=== PATIENT | female | born 1975 | race Caucasian/White ===

== ENCOUNTER 2020-07-02 13:53 | Outpatient (REF) | payer MEDICAID, SELFPAY | END 2020-07-02 13:54 | disposition home or self-care (01) | LOC: HO.MRI 13:53 | PROVIDERS: Visit Provider Internal Medicine | DX: M25.511 Pain in right shoulder (principal) | CPT/HCPCS: 73221 ==

== ENCOUNTER 2021-10-11 08:04 | Outpatient (REF) | payer MEDICAID, SELFPAY | END 2021-10-11 08:05 | disposition home or self-care (01) | LOC: HO.HOSX 08:04 | PROVIDERS: Visit Provider Physician Assistant | DX: Z13.89 Encounter for screening for other disorder (principal) ==

== ENCOUNTER 2023-02-02 15:25 | Outpatient (REF) | payer MEDICAID, SELFPAY ==
[2023-02-02 17:55] LABS: MANUAL DIFF FLAG NO
[2023-02-02 18:01] LABS: Basophils Absolute Auto 0.1 X10*3/uL (0.0-0.2); Basophils Percent Auto 0.7 % (0-2); Eosinophils Absolute Auto 0.2 X10*3/uL (0.0-0.4); Hematocrit 42.9 % (37.0-47.0); Hemoglobin 14.4 g/dl (12.0-16.0); Imm Gran Abs Auto 0.03 X10*3/uL (0.00-0.03); Imm Gran Pct Auto 0.3 % (0.0-0.4); Lymphocytes Percent Auto 20.1 % (20-40); Mean Corpuscular HGB Conc 33.6 g/dl (31.0-35.0); Mean Corpuscular Hemoglobin 31.2 pg (27.0-33.0); Mean Corpuscular Volume 93.1 fL (80.0-98.0); Mean Platelet Volume 10.3 fL (9.4-12.3); Monocytes Absolute Auto 0.6 X10*3/uL (0.1-1.2); Monocytes Percent Auto 6.1 % (2-11); Neutrophils Absolute Auto 7.2 x10*3/uL (2.0-8.3); Neutrophils Percent Auto 70.8 % (45-73); Platelet Count 238 X10*3/uL (160-400); Red Blood Count 4.61 X10*6/uL (4.20-5.50); Red Cell Distribution Width 12.1 % (11.0-16.0); White Blood Count 10.2 X10*3/uL (4.8-10.8)
[2023-02-02 18:30] LABS: Alanine Aminotransferase 11 U/L (0-31); Albumin Level 4.1 g/dL (3.5-5.0); Alkaline Phosphatase 91 U/L (39-117); Anion Gap 12 (12-20); Aspartate Amino Transferase 12 U/L (5-31); Bilirubin Total 0.7 mg/dL (0.0-1.0); Blood Urea Nitrogen 12 mg/dL (9-16); Carbon Dioxide 25 mmol/L (22-29); Chloride 105 mmol/L (96-108); Cholesterol 207 mg/dL (<200); Estimated Glomerular Filt Rate > 60; Glucose Random 80 mg/dL (60-115); HDL Cholesterol 48 mg/dL (>40); LDL Cholesterol Calculated 119 mg/dL (<100); Potassium 3.9 mmol/L (3.3-5.1); Sodium 138 mmol/L (135-145); Triglycerides 200 mg/dL (<150)
[2023-02-02 18:46] LABS: TSH reflex Free T4 11.13 uIU/mL (0.32-4.0)
[2023-02-02 19:29] LABS: Free T4 (Free Thyroxine) 1.07 ng/dL (0.71-1.85)
[2023-02-03 08:13] LABS: Estimated Average Glucose 88 mg/dL; Hemoglobin A1c % 4.7 % (<6.0)
[2023-02-03 08:55] LABS: ~HepC Num1 0.09 S/CO (0.00-0.79); ~Hepatitis C Antibody Nonreactive (Nonreactive)
[2023-02-07 19:23] LABS: HIV RNA PCR Qn Copies Not Detected Copies/mL; HIV RNA PCR Qn Log Copies Not Detected Log cps/mL
== END 2023-02-02 15:26 | disposition home or self-care (01) ==
LOC: HO.CHCLDS 15:25
PROVIDERS: Visit Provider Internal Medicine
DX: Z11.4 Encounter for screening for human immunodeficiency virus [HIV] (principal); Z85.850 Personal history of malignant neoplasm of thyroid
CPT/HCPCS: 36415; 80053; 80061; 83036; 84439; 84443; 85025; 86803; 87536; 87900

== ENCOUNTER 2023-03-27 13:39 | Outpatient (REF) | payer MEDICAID, SELFPAY ==
[2023-03-27 15:54] LABS: TSH reflex Free T4 1.64 uIU/mL (0.32-4.0)
== END 2023-03-27 13:40 | disposition home or self-care (01) ==
LOC: HO.CHCLDS 13:39
PROVIDERS: Visit Provider Internal Medicine
DX: E03.9 Hypothyroidism, unspecified (principal)
CPT/HCPCS: 36415; 84443

== ENCOUNTER 2023-03-29 14:14 | Outpatient (REF) | payer MEDICAID, SELFPAY ==
[2023-03-29 17:24] LABS: Alanine Aminotransferase 12 U/L (0-31); Albumin Level 3.8 g/dL (3.5-5.0); Alkaline Phosphatase 93 U/L (39-117); Anion Gap 14 (12-20); Aspartate Amino Transferase 10 U/L (5-31); Bilirubin Total 0.5 mg/dL (0.0-1.0); Blood Urea Nitrogen 14 mg/dL (9-16); C Reactive Protein 0.23 mg/dL (< or = 0.50); Calcium 8.9 mg/dL (8.4-10.2); Carbon Dioxide 29 mmol/L (22-29); Chloride 102 mmol/L (96-108); Estimated Glomerular Filt Rate > 60; Glucose Random 105 mg/dL (60-115); Potassium 4.6 mmol/L (3.3-5.1); Sodium 140 mmol/L (135-145); Total Protein 6.7 g/dL (6.5-8.0)
[2023-04-04 10:23] LABS: Transglutaminase Ab IgG <1.0 U/mL; Transglutaminase IgA <1.0 U/mL
== END 2023-03-29 14:15 | disposition home or self-care (01) ==
LOC: HO.LAB 14:14
PROVIDERS: PCP Internal Medicine; Visit Provider Nurse Practitioner
DX: R19.7 Diarrhea, unspecified (principal); K21.9 Gastro-esophageal reflux disease without esophagitis; R10.11 Right upper quadrant pain
CPT/HCPCS: 36415; 80053; 86140; 86364; 99212

== ENCOUNTER 2023-03-29 14:14 | Outpatient (AMB) | payer MEDICAID, SELFPAY ==
--- NOTE | 2023-03-29 14:17 | MHC.OFFVIS ---
Intake Vital Signs 03/29/23 14:48 Height 5 ft 2 in Weight 145 lb 8.081 oz BMI 26.6 BP 108/66 Blood Pressure Location Rt brachial Position Sitting Pulse 72 Intake Visit Reasons: Liver cyst / Nonalcoholic steatohepatitis Intake Note: Patient presents to in office visit today as a new patient for liver cyst. CC: Patient reports she has IBS and states she gets a lot of diarrhea, abdominal pain all the time, vomiting with IBS flare ups. She also c/o acid reflux, abdominal bloating, and gas. She states she was seen last night at [facility] with chest pain and breathing out of control . Allergies diazepam [From Valium] Allergy (Severe, Verified 03/29/23 14:55) Hives HPI Liver cyst / Nonalcoholic steatohepatitis HPI Details 47-year-old female here for initial evaluation of elevated LFTs. She is referred by Sterling Hernandez of [facility]. PMX Asthma Allergic rhinitis History thyroid cancer Hypothyroid Mood disorder GERD * SURGICAL HISTORY Hysterectomy Thyroidectomy ACL repair left knee * ALLERGIES Diazepam - hives * naaya LABS: Laboratory Tests 02/02/23 02/02/23 03/27/23 15:30 15:30 13:44 WBC 10.2 Hgb 14.4 Hct 42.9 Plt Count 238 Estimated GFR > 60 Total Bilirubin 0.7 AST 12 ALT 11 Alkaline Phosphata se 91 TSH 1.64 Free T4 1.07 Hepatitis C Ab (EI A) Nonreactive TODAY'S VISIT She is today with her mother who is supportive. She says she is here for an upper and lower endoscopy to see what is going on for my IBS. She has had IBS for 12 years. She really can not remember what the findings were from those procedures. She has constant diarrhea, that is worse with mac and cheese, spicy foods, [employer]. She says this was dx'ed via EGD/colonoscopy 12 years ago. She does not have diarrhea every day, at times she will not move her bowels for a couple of days but never has a solid stool. She will have frequent fecal incontinence. She has a lot of bloating and gas, this is worse after eating omeprazole. (question if there is any element of diarrhea caused by omeprazole) Her IBS worsens with stress, it was worse after my marriage, she is now . She feels like her stomach is stretching and extremely distended however she also has gained quite a bit of weight recently. She will have a burning pain that starts in the RUQ and then follows the colon path and then she will have severe diarrhea with vomiting. . She was seen recently at [facility] (3 mos ago) and was told she was having a GB attack and she says she met the surgeon and after 18 hours she was told she was going home. She was also told she had fatty liver, but her LFT s are normal. Apparently they also told her she ?real bad fatty liver? however when she shows me the scan on her patient portal it says that the liver was in the radiology notes but then says that there is stable fatty liver under the final impressions. This report clearly contradicts itself. It sounds like there was a lot of [facility] the night she was there and couple of different charts may have been mixed up. She is quite confused re: her thyroid polyps and esophageal polyps. She has been gaining wt recently but also has thyroid disease with nodules removed. She says her thyroid levels went way up a few weeks ago. Her endocrine is at [address] [facility]. She has tried bentyl w/o any effect. She has never tried [id number] Imodium or anything like Carafate etc.. I am try to get records from both [facility] in [facility] from her ER visit, will also get a basic diarrhea workup including food allergy testing and CRP, and ultrasound of her abdomen to try to clarify the very confusing CT scan reports. I would rather do this than expose her to another large dose of radiation.. There is no known family history of stomach or colon cancer or similar GI problems. Her mother was diagnosed with an allergy to eggs the past but says she continues to eat them and she does not feel that they affect her poorly. Her mother has bouts of diverticulitis. For now I am going to wait until I get some tests and records before I prescribed any new treatments. The patient sounds quite manic during the interview and tends to jump from subject to subject however she does not seem to be confabulating as far as I can tell. She may have untreated attention deficit hyperactivity disorder. Return office visit in 4 weeks. [facility] Medical History (Updated 03/29/23 @ 15:21 by VI Mosqueda) Thyroid cancer Surgical History (Updated 03/29/23 @ 15:47 by VI Mosqueda) S/P ACL repair H/O thyroidectomy History of hysterectomy Family History (Updated 03/29/23 @ 15:01 by Theodore Munguia CCM) Mother Breast cancer Family/Other Bone cancer Maternal Grandmother Breast cancer Maternal Aunt Breast cancer Social History (Updated 03/29/23 @ 15:02 by Theodore Munguia [facility]) Alcohol intake: former Patient Tobacco Use Status: Former Tobacco user Review of Systems Const Denies fatigue, Denies fever(s), Denies night sweats, Denies poor appetite, Reports weight gain and Denies weight loss ENT Reports Normal hearing present, Denies dental pain, Denies dysphagia, Denies hearing loss, Denies mouth pain, Denies odynophagia, Denies throat swelling, Denies tongue swelling and Reports other (Dentition adequate) Card Reports no additional complaints Resp Reports no additional complaints GI Reports abdominal pain, Denies melena, Reports bloating, Denies hematochezia, Denies constipation, Denies GI cramping, Denies dysphagia, Denies excessive flatus, Denies early satiety, Reports heartburn, Reports diarrhea, Reports nausea, Denies odynophagia, Reports vomiting and Denies hematemesis Skin/Breast Denies pruritus, Denies lesions, Denies rash and Denies jaundice Neuro Reports Normal hearing present and Denies Abnormal speech present Endo Denies fatigue Aller/Immun Denies throat swelling and Denies tongue swelling Physical Exam Vital Signs: Last Vital Signs Pulse 72 03/29/23 14:48 BP 108/66 03/29/23 14:48 BMI result Body Mass Index 26.6 Const General: cooperative, no acute distress, well developed and well groomed Nutritional Appearance: well nourished and obese centrally obese Orientation/consciousness: oriented to person, oriented to place and oriented to time Limitations: No language barrier HEENT Head: Yes normocephalic and Yes atraumatic Eyes General: appearance normal, both eyes and all related structures Pupils: Equal, round and reactive pupils present Neck Neck: Yes normal visual inspection and Yes no lymphadenopathy Thyroid: Thyroid normal Resp Effort & Inspection: normal respiratory effort and able to speak in complete sentences Auscultation: clear to auscultation bilaterally Cardio Rate: regular rate Rhythm: regular rhythm Heart sounds: Normal, physiologic split S2 sound present Peripheral pulses: radial pulses present and posterior tibial pulses present GI Inspection: Yes distended, Yes Abdominal panniculus present, Yes obesity and Yes striae Palpation (GI): Soft to palpation, nontender, no guarding, not rigid, No hepatosplenomegaly present and Hernia present umbilical (Mild) Percussion: Yes normal to percussion Auscultation: normal bowel sounds Rectal Exam - Female: deferred Abdomen image: 1. surgical scar Skin General skin exam: no rashes or lesions noted, turgor normal, skin not dry, no jaundice, No spider nevi and no striae Rashes: no rashes Nails: normal Neuro General: oriented to person, oriented to place and oriented to time Cranial nerves: Yes Equal, round and reactive pupils present and Yes Normal hearing present Speech: No Abnormal speech present Extrem General: Yes normal to inspection, No clubbing, No cyanosis and No edema Psych Appearance: grossly normal and well kempt Mental Status: mental status grossly normal Speech and movement: Pressured speech present Affect: Animated affect present Attitude: cooperative Thought process: Circumstantial thought process present, not confabulating and Racing thoughts present Thought content: Normal thought content present Insight: Limited insight present (Psych) Judgement: Limited judgement present (Psych) Assessment & Plan Assessment & Plan (1) Diarrhea: Code(s): R19.7 - Diarrhea, unspecified Plan: She is today with her mother who is supportive. She says she is here for an upper and lower endoscopy to see what is going on for my IBS. She has had IBS for 12 years. She really can not remember what the findings were from those procedures. She has constant diarrhea, that is worse with mac and cheese, spicy foods, [employer]. She says this was dx'ed via EGD/colonoscopy 12 years ago. She does not have diarrhea every day, at times she will not move her bowels for a couple of days but never has a solid stool. She will have frequent fecal incontinence. She has a lot of bloating and gas, this is worse after eating omeprazole. (question if there is any element of diarrhea caused by omeprazole) Her IBS worsens with stress, it was worse after my marriage, she is now . She feels like her stomach is stretching and extremely distended however she also has gained quite a bit of weight recently. She will have a burning pain that starts in the RUQ and then follows the colon path and then she will have severe diarrhea with vomiting. . She was seen recently at [facility] (3 mos ago) and was told she was having a GB attack and she says she met the surgeon and after 18 hours she was told she was going home. She was also told she had fatty liver, but her LFT s are normal. Apparently they also told her she ?real bad fatty liver? however when she shows me the scan on her patient portal it says that the liver was in the radiology notes but then says that there is stable fatty liver under the final impressions. This report clearly contradicts itself. It sounds like there was a lot of [facility] the night she was there and couple of different charts may have been mixed up. She is quite confused re: her thyroid polyps and esophageal polyps. She has been gaining wt recently but also has thyroid disease with nodules removed. She says her thyroid levels went way up a few weeks ago. Her endocrine is at [facility]. She has tried bentyl w/o any effect. She has never tried [id number] Imodium or anything like Carafate etc.. I am try to get records from both [facility] in [facility] from her ER visit, will also get a basic diarrhea workup including food allergy testing and CRP, and ultrasound of her abdomen to try to clarify the very confusing CT scan reports. I would rather do this than expose her to another large dose of radiation.. There is no known family history of stomach or colon cancer or similar GI problems. Her mother was diagnosed with an allergy to eggs the past but says she continues to eat them and she does not feel that they affect her poorly. Her mother has bouts of diverticulitis. For now I am going to wait until I get some tests and records before I prescribed any new treatments. The patient sounds quite manic during the interview and tends to jump from subject to subject however she does not seem to be confabulating as far as I can tell. She may have untreated attention deficit hyperactivity disorder. Return office visit in 4 weeks. (2) RUQ abdominal pain: Code(s): R10.11 - Right upper quadrant pain (3) GERD (gastroesophageal reflux disease): Code(s): K21.9 - Gastro-esophageal reflux disease without esophagitis Orders: Orders Comprehensive Met. Panel Today K21.9 - Gastro-esophageal reflux disease without esophagitis, R10.11 - Right upper quadrant pain, R19.7 - Diarrhea, unspecified Transglutaminase Ab IgG Today K21.9 - Gastro-esophageal reflux disease without esophagitis, R10.11 - Right upper quadrant pain, R19.7 - Diarrhea, unspecified C Reactive Protein Today K21.9 - Gastro-esophageal reflux disease without esophagitis, R10.11 - Right upper quadrant pain, R19.7 - Diarrhea, unspecified EGD/[facility] Combo - GI Use Only Today K21.9 - Gastro-esophageal reflux disease without esophagitis, R10.11 - Right upper quadrant pain, R19.7 - Diarrhea, unspecified US abdomen complete Today R10.11 - Right upper quadrant pain Rast Allergen Today K21.9 - Gastro-esophageal reflux disease without esophagitis, R10.11 - Right upper quadrant pain, R19.7 - Diarrhea, unspecified Transglutaminase IgA Today K21.9 - Gastro-esophageal reflux disease without esophagitis, R10.11 - Right upper quadrant pain, R19.7 - Diarrhea, unspecified Coding Level of Care Code New Pt Level 3 (48860) Diagnoses Diarrhea R19.7 RUQ abdominal pain R10.11 GERD (gastroesophageal reflux disease) K21.9
[2023-03-29 14:48] VITALS: BP 108/66; PULSE 72; BMI 26.6
== END 2023-03-29 15:37 | disposition home or self-care (01) ==
PROVIDERS: PCP Internal Medicine; Visit Provider Nurse Practitioner
DX: R19.7 Diarrhea, unspecified (principal); R10.11 Right upper quadrant pain; K21.9 Gastro-esophageal reflux disease without esophagitis
CPT/HCPCS: 99203

== ENCOUNTER 2023-08-02 14:05 | Outpatient (REF) | payer MEDICAID, SELFPAY ==
--- NOTE | ~2023-08-02 | XR_ITS ---
EXAMINATION: XR SHOULDER, RIGHT CLINICAL INFORMATION: Pain of right shoulder COMPARISON: MRI from 07/02/2020 TECHNIQUE: AP external rotation, Grashey, scapular Y, and axillary views of the right shoulder. FINDINGS: The humeral head is well positioned over the intact glenoid. Glenohumeral joint space is normal: no arthritic deformity, fracture or subluxation. Acromioclavicular joint is normal. The subacromial space is normal. There are no osteophytes projecting from the undersurface of the acromioclavicular joint. No hook-shaped acromion, os acromiale or subacromial enthesophyte. No osseous findings that would predispose to a subacromial impingement disorder. No calcium deposition within rotator cuff tendons. The right lung is unremarkable. Incidentally noted is mild dextrocurvature and mild spondylosis of the thoracic spine. Old healed fracture of the right posterior ninth rib. XR/XR shoulder RT min 2V IMPRESSION: Normal right shoulder. No specific source of pain is identified. Note that the patient had a small interstitial tear of the distal supraspinatus tendon on the MRI from 07/02/2020.
== END 2023-08-02 14:06 | disposition home or self-care (01) ==
LOC: HO.HMGCX 14:05
PROVIDERS: PCP Internal Medicine; Visit Provider Internal Medicine
DX: M25.511 Pain in right shoulder (principal)
CPT/HCPCS: 73030

== ENCOUNTER 2024-01-04 07:37 | Day surgery (SDC) | payer MEDICAID, SELFPAY ==
[2024-01-02 14:05] VITALS: BMI 26.7
--- NOTE | 2024-01-03 11:47 | HO.ANESPROP2 ---
Documented by User: Milly Elizondo NP 01/03/24 11:47 HPI - Anesthesia Eval Consult details Narrative: 48yo F for Upper Endoscopy and Colonoscopy PMFSH Active Problems Active Problems: All Active Problems RUQ abdominal pain (Acute) Diarrhea (Acute) Liver cyst (Acute) GERD (gastroesophageal reflux disease) (Acute) Mood disorder (Acute) Hypothyroid (Acute) History of thyroid cancer (Acute) Allergic rhinitis (Acute) Asthma (Acute) Hepatic steatosis (Acute) Past Medical History Medical History Atypical chest pain IBS (irritable bowel syndrome) Asthma Mood disorder Hypothyroid Liver cyst GERD (gastroesophageal reflux disease) Thyroid cancer Family History Family History Mother Breast cancer Family/Other Bone cancer Maternal Grandmother Breast cancer Maternal Aunt Breast cancer Surgical History Surgical History Hx of colonoscopy Hx of esophagogastroduodenoscopy S/P ACL repair H/O thyroidectomy History of hysterectomy Social History Social History Alcohol intake: former Patient Tobacco Use Status: Former Tobacco user Are you DNR?: No Advance Directives: No Advance Directives Information Provided: Yes Meds Allergies Allergy/AdvReac Type Severity Reaction Status Date / Time diazepam [From Valium] Allergy Severe Hives Verified 03/29/23 14:55 Home Medications ?Medication ?Instructions ?Recorded ?Confirmed ?Last Taken ?Type albuterol sulfate 90 mcg/actuation 2 puff inhalation Q4H PRN 03/29/23 01/02/24 Unknown History aerosol inhaler (Ventolin HFA) Shortness Of Breath clonazepam 2 mg tablet 2 mg PO DAILY PRN anxiety 03/29/23 01/02/24 Unknown History fluocinolone 0.01 % scalp oil and 1 ea topical 2XW 03/29/23 01/02/24 Unknown History shower cap fluoxetine 10 mg capsule 10 mg PO QAM 03/29/23 01/02/24 Unknown History levothyroxine 125 mcg capsule 125 mcg PO DAILY 03/29/23 01/02/24 Unknown History (Tirosint) omeprazole 20 mg capsule,delayed 20 mg PO DAILY 03/29/23 01/02/24 Unknown History release trazodone 150 mg tablet 150 mg PO BEDTIME 03/29/23 01/02/24 Unknown History Exam Height,Weight and Vital Signs: Height 5 ft 2 in Weight 66.224 kg Assessment and Plan Assessment Anesthesia Assessment: Chart Reviewed Documented by User: Gladys Crowe MD 01/04/24 09:31 [facility] Past Medical History Medical History Atypical chest pain IBS (irritable bowel syndrome) Asthma Mood disorder Hypothyroid Liver cyst GERD (gastroesophageal reflux disease) Thyroid cancer Family History Family History Mother Breast cancer Family/Other Bone cancer Maternal Grandmother Breast cancer Maternal Aunt Breast cancer Family history of problems with anesthesia: No Surgical History Surgical History Hx of colonoscopy Hx of esophagogastroduodenoscopy S/P ACL repair H/O thyroidectomy History of hysterectomy History of Problems with Anesthesia: No Social History Social History Alcohol intake: former Patient Tobacco Use Status: Former Tobacco user Are you DNR?: No Advance Directives: No Advance Directives Information Provided: Yes Meds Allergies Allergy/AdvReac Type Severity Reaction Status Date / Time diazepam [From Valium] Allergy Severe Hives Verified 03/29/23 14:55 Home Medications ?Medication ?Instructions ?Recorded ?Confirmed ?Last Taken ?Type albuterol sulfate 90 mcg/actuation 2 puff inhalation Q4H PRN 03/29/23 01/02/24 Unknown History aerosol inhaler (Ventolin HFA) Shortness Of Breath clonazepam 2 mg tablet 2 mg PO DAILY PRN anxiety 03/29/23 01/02/24 Unknown History fluocinolone 0.01 % scalp oil and 1 ea topical 2XW 03/29/23 01/02/24 Unknown History shower cap fluoxetine 10 mg capsule 10 mg PO QAM 03/29/23 01/02/24 Unknown History levothyroxine 125 mcg capsule 125 mcg PO DAILY 03/29/23 01/02/24 Unknown History (Tirosint) omeprazole 20 mg capsule,delayed 20 mg PO DAILY 03/29/23 01/02/24 Unknown History release trazodone 150 mg tablet 150 mg PO BEDTIME 03/29/23 01/02/24 Unknown History Exam Airway Mallampati Class: II TM Dist: >3cm Neck ROM: Full Heart: rrr Lungs: cta Assessment and Plan Assessment Anesthesia Assessment: Anesthesia Plan Discussed Final Anesthetic Review Family History of Problems with Anesthesia: No History of Problems with Anesthesia: No NPO: Yes ASA Class: III Final Preanesthetic Review: No Changes in Pt Med Stat, Meds/Allgs Chart Reviewed, Consent Obtained/Reviewed and Anes Risks/Benef Reviewed Patient Risk: Intermediate Procedure Risk: Low Anesthetic Plan Anesthetic Plan: MAC: Disposition: Standard PACU
[2024-01-04 07:49] VITALS: BP 134/88; PULSE 69; RESP 20; TEMP 36.9; O2SAT 98; BMI 27.3
[2024-01-04] MEDS: Lactated Ringers 1,000 ML 100 ML IVCONT (08:10)
--- NOTE | 2024-01-04 08:25 | MHC.SHP ---
Pre-Procedural Eval Section A - 24 Hr Update-Section A only Date of Service: 01/04/24 Section B - Complete if H&P > 30 days Chief Complaint: Right upper quadrant pain,gerd,diarrhea Relevant Family History (Specify if Yes): No Relevant Social History: None Present Medications: see Short Stay Collaborative assessment Medical History: Significant History (Atypical chest pain IBS (irritable bowel syndrome) Asthma Mood disorder Hypothyroid Liver cyst GERD (gastroesophageal reflux disease) Thyroid cancer) History of Previous Operations: Relevant previous surgery/procedure and date(s) ( S/P ACL repair H/O thyroidectomy History of hysterectomy) Allergies: Allergies Allergy/AdvReac Type Severity Reaction Status Date / Time diazepam [From Valium] Allergy Severe Hives Verified 03/29/23 14:55 Review of Systems Sugical H&P ROS: Negative: Constitution, Cardiovascular, Respiratory, Neurological, Psychiatric, Hem-Onc, Allergic/Immunologic, Gastrointestinal, Genitourinary, Musculoskeletal, Integumentary, Endocrine and Eyes/Ears/Nose/Throat Exam Surgical H&P Exam: Normal: HEENT, Normal: Heart, Normal: Lungs, Normal: Extremities, Normal: Abdomen, Normal: Skin and Normal: Neurological Plan Diagnosis/Plan: Unchanged I have reviewed the history and physical and performed a pertinent physical examination on my patient. No changes have occurred unless specified. Time Spent With Patient Time: Total time managing care of this patient today ____ minutes.
--- NOTE | 2024-01-04 09:12 | HO.OPN-COLON ---
Colonoscopy Operative Note Operative Note Date of Service: 01/04/24 Narrative: Operative Information Procedure Description: EGD, Colonoscopy Indication: abdominal pain and abn bowel habits Anesthesia: MAC FLEXIBLE TRANSORAL UPPER GASTROINTESTINAL ENDOSCOPY AND COLONOSCOPY PROCEDURE NOTE UPPER ENDOSCOPY Consent: Indications for the procedure and potential complications of bleeding, perforation, reaction to medications and missed diagnosis were discussed with the patient and informed consent was obtained. Instrument: Olympus GIF H 190 J mid size upper endoscope Monitoring: Vital signs and clinical assessment, continuous EKG monitoring, Pulse oximetry, Carbon Dioxide monitoring and blood pressure monitoring were done throughout the procedure. Procedure: The patient was placed in the left lateral decubitis position and pre-procedure medications were administered and a bite block was placed. The endoscope was inserted into the mouth and advanced under direct vision to the third part of duodenum. A careful inspection was made as the upper endoscope was withdrawn including a retroflexed examination of the proximal stomach; Findings and interventions are described below. Findings: Larynx:normal Esophagus: GE junction at 40 cm, diaphragm hiatus at 40 cm, mild erythema and irregular Z line, biopsies taken Stomach: Patchy erythema. Biopsies were obtained. Grade 2 flap valve on retroflexed examination of the cardia. Possible gastroparesis, there appeared to be reduced gastric motility. Duodenum: Normal bulb and descending duodenum, bx taken Intervention: Biopsies as noted above, COLONOSCOPY Instrument: Olympus variable stiffness pediatric scope 190L Colonoscopy Monitoring: Vital signs and clinical assessment, continuous EKG monitoring, Pulse oximetry, Carbon Dioxide monitoring and blood pressure monitoring were done throughout the procedure. Colon withdrawal time was 9 minutes. Procedure: The patient was placed in the left lateral decubitis position and pre-procedure medications were administered. After a digital rectal examination of the ano-rectum, the video colonoscope was inserted into the rectum and advanced through the colon to the cecum/TI. The colonoscope was slowly withdrawn in a retrograde panoramic fashion and the colon mucosa was carefully examined including a retroflexed view of the rectum. Findings and interventions are described below. Procedure Difficulty:moderate Findings: Terminal Ileum-normal, random bx taken Random colon bx taken Cecum:normal Ascending Colon: normal Transverse Colon -normal Descending Colon:normal Sigmoid Colon: moderate diverticulosis with luminal narrowing and mucosal hypertrophy Rectum: Retroflexion with small internal hemorrhoids, grade I, 4-6 mm sessile polyp removed with cold forceps Anorectum - normal Colon preparation: Henderson Bowel Preparation Scale Right colon; 2 Transverse colon: 2 Left colon; 2 (0 = Unprepared colon segment with mucosa not seen due to solid stool that cannot be cleared. 1 = Portion of mucosa of the colon segment seen, but other areas of the colon segment not well seen due to staining, residual stool and/or opaque liquid. 2 = Minor amount of residual staining, small fragments of stool and/or opaque liquid, but mucosa of colon segment seen well. 3 = Entire mucosa of colon segment seen well with no residual staining, small fragments of stool or opaque liquid) Impression and Post Procedure Diagnosis: Endoscopy Findings: gastritis esophagitis possible gastroparesis Colonoscopy Findings: diverticulosis colon polyp internal hemorrhoids Plan: Await Pathology results Repeat Colonoscopy in 5-7 years if adenomatous polyp, 10 yrs if hyperplastic or earlier if clinically indicated High fiber diet leaflet avoid straining at stool, epsom salts and sitz bath, anusol supps or cream consider gastric emptying study if ongoing sx Above findings were reviewed with the patient and relevant handouts were provided if indicated.
[2024-01-04 09:57] VITALS: BP 132/82; PULSE 89; RESP 18; TEMP 36.1; O2SAT 98
[2024-01-04 10:12] VITALS: BP 122/89; PULSE 78; RESP 18; TEMP 36.6; O2SAT 98
== END 2024-01-04 10:47 | disposition home or self-care (01) ==
PROVIDERS: PCP Internal Medicine; Visit Provider Internal Medicine Gastroenterology
PROC: (CPT 43239; principal; 2024-01-04 09:30)
DX: K29.70 Gastritis, unspecified, without bleeding (principal); K20.90 Esophagitis, unspecified without bleeding; K22.9 Disease of esophagus, unspecified; K76.89 Other specified diseases of liver; K21.9 Gastro-esophageal reflux disease without esophagitis; D12.8 Benign neoplasm of rectum; K57.30 Diverticulosis of large intestine without perforation or abscess without bleeding; K64.0 First degree hemorrhoids; K58.0 Irritable bowel syndrome with diarrhea; J45.909 Unspecified asthma, uncomplicated; Z85.850 Personal history of malignant neoplasm of thyroid
CPT/HCPCS: 43239; 45380; 88305; 88313; 88341; 88342; J1596; J2704

== ENCOUNTER → 2024-01-04 07:37 | Outpatient (BNV) | payer MEDICAID, SELFPAY | PROVIDERS: PCP Internal Medicine; Visit Provider Internal Medicine Gastroenterology | DX: K29.70 Gastritis, unspecified, without bleeding (principal); K20.90 Esophagitis, unspecified without bleeding; K31.84 Gastroparesis; R19.4 Change in bowel habit; K57.30 Diverticulosis of large intestine without perforation or abscess without bleeding; K63.5 Polyp of colon; K64.0 First degree hemorrhoids | CPT/HCPCS: 43239; 45380 ==

== ENCOUNTER 2024-01-18 09:52 | Outpatient (AMB) | payer MEDICAID, SELFPAY ==
--- NOTE | 2024-01-18 09:55 | A.OFFVIS_ITS ---
Vital Signs 01/18/24 10:04 Height 5 ft 2 in Weight 151 lb 3.794 oz BMI 27.7 BP 120/76 Blood Pressure Location Lt brachial Position Sitting Pulse 86 Intake Visit Reasons: S/P Dr. Adriana Saeed Intake Note: Jerri presents in follow up s/p EGD and colonoscopy. CC: Patient reports having abdominal pain, nausea, and diarrhea. She also c/o inflammation from abdomen. 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 Adriana Saeed: Details: Assessment & Plan (1) Diarrhea: Code(s): R19.7 - Diarrhea, unspecified Plan: She is today with her mother who is supportive. She says she is here for an upper and lower endoscopy to see what is going on for my IBS. She has had IBS for 12 years. She really can not remember what the findings were from those procedures. She has constant diarrhea, that is worse with mac and cheese, spicy foods, [employer]. She says this was dx'ed via EGD/colonoscopy 12 years ago. She does not have diarrhea every day, at times she will not move her bowels for a couple of days but never has a solid stool. She will have frequent fecal incontinence. She has a lot of bloating and gas, this is worse after eating omeprazole. (question if there is any element of diarrhea caused by omeprazole) Her IBS worsens with stress, it was worse after my marriage, she is now . She feels like her stomach is stretching and extremely distended however she also has gained quite a bit of weight recently. She will have a burning pain that starts in the RUQ and then follows the colon path and then she will have severe diarrhea with vomiting. . She was seen recently at [facility] (3 mos ago) and was told she was having a GB attack and she says she met the surgeon and after 18 hours she was told she was going home. She was also told she had fatty liver, but her LFT s are normal. Apparently they also told her she ?real bad fatty liver? however when she shows me the scan on her patient portal it says that the liver was in the radiology notes but then says that there is stable fatty liver under the final impressions. This report clearly contradicts itself. It sounds like there was a lot of [place] the night she was there and couple of different charts may have been mixed up. She is quite confused re: her thyroid polyps and esophageal polyps. She has been gaining wt recently but also has thyroid disease with nodules removed. She says her thyroid levels went way up a few weeks ago. Her endocrine is at [address] [facility]. She has tried bentyl w/o any effect. She has never tried [id number] Imodium or anything like Carafate etc.. I am try to get records from both [facility] in [place] from her ER visit, will also get a basic diarrhea workup including food allergy testing and CRP, and ultrasound of her abdomen to try to clarify the very confusing CT scan reports. I would rather do this than expose her to another large dose of radiation.. There is no known family history of stomach or colon cancer or similar GI problems. Her mother was diagnosed with an allergy to eggs the past but says she continues to eat them and she does not feel that they affect her poorly. Her mother has bouts of diverticulitis. For now I am going to wait until I get some tests and records before I prescribed any new treatments. The patient sounds quite manic during the interview and tends to jump from subject to subject however she does not seem to be confabulating as far as I can tell. She may have untreated attention deficit hyperactivity disorder. Return office visit in 4 weeks. (2) RUQ abdominal pain: Code(s): R10.11 - Right upper quadrant pain (3) GERD (gastroesophageal reflux disease): Code(s): K21.9 - Gastro-esophageal reflux disease without esophagitis Orders: Orders Comprehensive Met. Panel Today K21.9 - Gastro-esophageal reflux disease without esophagitis, R10.11 - Right upper quadrant pain, R19.7 - Diarrhea, unspecified Transglutaminase Ab IgG Today K21.9 - Gastro-esophageal reflux disease without esophagitis, R10.11 - Right upper quadrant pain, R19.7 - Diarrhea, unspecified C Reactive Protein Today K21.9 - Gastro-esophageal reflux disease without esophagitis, R10.11 - Right upper quadrant pain, R19.7 - Diarrhea, unspecified EGD/[place] Combo - GI Use Only Today K21.9 - Gastro-esophageal reflux disease without esophagitis, R10.11 - Right upper quadrant pain, R19.7 - Diarrhea, unspecified US abdomen complete Today R10.11 - Right upper quadrant pain Rast Allergen Today K21.9 - Gastro-esophageal reflux disease without esophagitis, R10.11 - Right upper quadrant pain, R19.7 - Diarrhea, unspecified Transglutaminase IgA Today K21.9 - Gastro-esophageal reflux disease without esophagitis, R10.11 - Right upper quadrant pain, R19.7 - Diarrhea, unspecified LABS: Laboratory Tests 03/29/23 16:04 Estimated GFR > 60 Total Bilirubin 0.5 AST 10 ALT 12 Alkaline Phosphatase 93 C-Reactive Protein 0.23 Tiss Transglutamin IgG <1.0 Tiss Transglutamin IgA <1.0 RAST SHOWS NO SIGNIFICANT FOOD ALLERGIES ULTRASOUND OF THE ABDOMEN EGD/COLONOSCOPY Findings: Larynx:normal Esophagus: GE junction at 40 cm, diaphragm hiatus at 40 cm, mild erythema and irregular Z line, biopsies taken Stomach: Patchy erythema. Biopsies were obtained. Grade 2 flap valve on retroflexed examination of the cardia. Possible gastroparesis, there appeared to be reduced gastric motility. Duodenum: Normal bulb and descending duodenum, bx taken Findings: Terminal Ileum-normal, random bx taken Random colon bx taken Cecum:normal Ascending Colon: normal Transverse Colon -normal Descending Colon:normal Sigmoid Colon: moderate diverticulosis with luminal narrowing and mucosal hypertrophy Rectum: Retroflexion with small internal hemorrhoids, grade I, 4-6 mm sessile polyp removed with cold forceps Anorectum - normal Impression and Post Procedure Diagnosis: Endoscopy Findings: gastritis esophagitis possible gastroparesis Colonoscopy Findings: diverticulosis colon polyp internal hemorrhoids Plan: Await Pathology results Repeat Colonoscopy in 5-7 years if adenomatous polyp, 10 yrs if hyperplastic or earlier if clinically indicated High fiber diet leaflet avoid straining at stool, epsom salts and sitz bath, anusol supps or cream consider gastric emptying study if ongoing sx BIOPSY Received: 01/04/24 ADDENDUM REPORT Addendum Addendum #1 CD117 Immunohistochemistry (# cells per high powered field): A. Terminal ileum (43 mast cells per high power field) B. Colon (33 mast cells per high power field) C. Rectum, biopsy (25 mast cells per high power field) GI tract involvement by systemic mastocytosis is characterized by aggregates of atypical appearing mast cells, which are often oval or spindle-shaped - features not seen in the current specimens. In reactive processes, mast cells are not atypical appearing and occur singly (as in this case). In one study (Zkee et al. PMID [id number]), the number of mast cells per high-powered field in IBS patients with diarrhea was elevated compared to asymptomatic patients (30 per high-powered field for IBS; 26 per high- powered field for asymptomatic patients in colon biopsies; statistically significant). Mast cell density in other areas of the GI tract is not well characterized. There are myriad other causes of elevated mast cells in GI mucosa, including allergies, celiac disease, malignancies, infections and drugs, among other etiologies (Belkis, etal. PMID [id number]). Correlation with the patient's clinical presentation and other laboratory studies is necessary. Electronically Signed By: Candace Villa MD 01/10/24 8466 Diagnosis A. Terminal ileum, biopsy: Ileal mucosa within normal limits; negative for active or chronic ileitis. B. Colon, random, biopsy: Colonic mucosa within normal limits; negative for active, chronic or microscopic colitis. C. Rectum, polypectomy: Tubular adenoma; negative for high-grade dysplasia. D. Duodenum, biopsy: Duodenal mucosa within normal limits; preserved villous architecture and no increased intraepithelial lymphocytes seen. E. Stomach, biopsy: Gastric antral and body mucosa within normal limits; negative for Helicobacter pylori, intestinal metaplasia and dysplasia. Patient: Jerri Nichole Age/Sex: 48/F MR#: [id number] Page 1 of 3 Surgical Pathology [id number] F. Gastroesophageal junction, biopsy: Gastric cardia-type mucosa with mild chronic inflammation; no squamous mucosa seen; negative for intestinal metaplasia and dysplasia. G. Esophagus, distal, biopsy: Squamous mucosa within normal limits; negative for inflammation (including intraepithelial eosinophils), fungal organisms, intestinal metaplasia and dysplasia. COMMENT: The immunohistochemical studies for CD117 have been ordered and results will be reported in an addendum. CORRESPONDENCE On 07/03/23 @ 12:33 Brenda Ferreira Wrote To Contreras,August JESUS see below On 07/03/23 @ 12:31 Brenda Ferreira Wrote To [facility] noted. Notified patient, patient upset but understands reason for her safety. patient will call back. OR notified. On 07/03/23 @ 11:53 Milly Elizondo Wrote To Brenda Ferreira 1) Per that ER note, she was having chest pain at PCP office the day prior for surgical clearance. Unlikely that she was cleared by PCP. 2) Usually if a patient is referred to a central service tech by another provider (ER doc, PCP, etc), there is a good reason and possible need for further work up. Although the patient doesn't feel like her issues are cardiac in nature, we should wait for the central service tech to weigh in with expertise and/or test results. Even if everything comes back negative, best to know that before an elective procedure. So please reschedule until after cleared by PCP/cardiology. Thanks. On 07/03/23 @ 10:41 Brenda Ferreira Wrote To Brenda Ferreira (2) spoke to patient confirms procedure on 07/06, has ride and prep - dulcolax/peg. Diet, prep, and helpful tips reviewed. She has good understanding , reporting she has had a colonoscopy before. Discussed ED visit in March, patient reports anxiety is cause / culprit. She denies chest pain, palpitations, sob. States, I have severe anxiety and my mother was making it worst. She have a cardiology appt 07/19, however she states this will be waste of time for everyone, since its my anxiety. Will have Milly Elizondo review. On 06/27/23 @ 16:23 Brenda Ferreira Wrote To Brenda Ferreira [facility] medical records called- patient has not been seen by cardiology. On 06/01/23 @ 08:24 Brenda Ferreira Wrote To Brenda Ferreira called patient- no pharmacy listed- preferred pharmacy added and scripts sent. Informed her that I will call her a few days before procedure to review diet and prep. Brenda Ferreira completed item. On 06/01/23 @ 07:48 Miriam Conde Wrote To Brenda Ferreira could you send peg prep ty On 04/04/23 @ 12:59 Miriam Conde Wrote To Miriam Conde Miriam Conde completed item. On 04/04/23 @ 12:59 Miriam Conde Wrote To Miriam Conde patient is scheduled 07/06/23, has an ov on 04/27/23 with anton can discuss her prep options at that time, as anton will need to rx her prep meds nothing sent. On 03/30/23 @ 08:51 Miriam Conde Wrote To [facility] added to spread sheet. Miriam Conde completed item. On 03/29/23 @ 15:44 Anton Chairez Wrote To [facility]ers As above TODAY'S VISIT She is here today with a female family member who is supportive. She is agreeable to a 5 year follow up. The procedure was well tolerated. The results were explained and the patient is agreeable to the follow-up interval as stated. The bowel pattern has returned to normal. Education was provided to tell any 1st degree relatives about their findings to be sure that they are screened by age 45. Educated that they will be put on a recall list when it is time for their repeat scope but should they move out of state or away from the hospital they will need to remember along with their primary to repeat the procedure in a timely fashion to avoid any adverse complications. She continues to have pain periumbilical and diarrhea. She admits that she eats as fast as I can, but is always hungry. I don't think she has gastroparesis with this presentation, she is just overwhelming her GI system. This is also true of her wt gain. She denies any nausea vomiting or early satiety. We discussed techniques to slow down her eating including counting how often she chews her food. US not obtained. I am going to reorder this exam because she has a perceived lump that is painful to her in the left upper quadrant that we need to explore. She is also questioning whether she has ?retaining water.? I do not think she is retaining water but the ultrasound will help us to decide this. She has been on dicyclomine but it has not helped with her symptoms. I think were going to progress her to imipramine and titrate it to affect her side effect. This is a better medication in that it is a bit stronger, the dosing regimen is easier to comply with, and also help her sleep. Since the pain tends to affect her sleep and she has trouble with this it could be a when when situation. She continues on omeprazole but of course will stop the dicyclomine. Return office visit in 4 weeks [facility] Medical History Atypical chest pain IBS (irritable bowel syndrome) Asthma Mood disorder Hypothyroid Liver cyst GERD (gastroesophageal reflux disease) Thyroid cancer Surgical History Hx of colonoscopy Hx of esophagogastroduodenoscopy S/P ACL repair H/O thyroidectomy History of hysterectomy Family History Mother Breast cancer Family/Other Bone cancer Maternal Grandmother Breast cancer Maternal Aunt Breast cancer Social History Alcohol intake: former Patient Tobacco Use Status: Former Tobacco user Review of Systems Const Denies fatigue, Denies fever(s), Denies night sweats, Denies poor appetite and Denies weight loss ENT Reports Normal hearing present, Denies dysphagia, Denies odynophagia, Denies throat swelling and Denies tongue swelling Card Reports no additional complaints Resp Reports no additional complaints GI Details: Reports abdominal pain, Denies melena, Denies bloating, Denies hematochezia, Denies constipation, Denies GI cramping, Denies dysphagia, Denies excessive flatus, Denies early satiety, Reports heartburn, Reports diarrhea, Denies nausea, Denies odynophagia, Denies vomiting and Denies hematemesis Skin/Breast Denies pruritus, Denies lesions, Denies rash and Denies jaundice Neuro Reports Normal hearing present and Denies Abnormal speech present Endo Denies fatigue Aller/Immun Denies throat swelling and Denies tongue swelling Physical Exam Vital Signs: Last Vital Signs Pulse 86 01/18/24 10:04 BP 120/76 01/18/24 10:04 BMI result Body Mass Index 27.7 Const General: cooperative, no acute distress, well developed and well groomed Nutritional Appearance: well nourished and obese morbidly obese Orientation/consciousness: oriented to person, oriented to place and oriented to time Limitations: behavioral limitations, No language barrier and other limitations HEENT Head: Yes normocephalic and Yes atraumatic Eyes General: appearance normal, both eyes and all related structures Pupils: Equal, round and reactive pupils present Neck Neck: Yes normal visual inspection and Yes no lymphadenopathy Thyroid: Thyroid normal Resp Effort & Inspection: normal respiratory effort and able to speak in complete sentences Auscultation: clear to auscultation bilaterally Cardio Rate: regular rate Rhythm: regular rhythm Heart sounds: Normal, physiologic split S2 sound present Peripheral pulses: radial pulses present and posterior tibial pulses present GI Inspection: No distended, Yes Abdominal panniculus present and Yes obesity Palpation (GI): Soft to palpation, Tenderness to palpation present (GI) in the LUQ, no guarding, not rigid and No hepatosplenomegaly present Percussion: Yes normal to percussion Auscultation: normal bowel sounds Rectal Exam - Female: deferred Skin General skin exam: no rashes or lesions noted, turgor normal, skin not dry, no jaundice, No spider nevi and no striae Rashes: no rashes Nails: normal Neuro General: oriented to person, oriented to place and oriented to time Cranial nerves: Yes Equal, round and reactive pupils present and Yes Normal hearing present Speech: No Abnormal speech present Extrem General: Yes normal to inspection, No clubbing, No cyanosis and No edema Psych Appearance: grossly normal and well kempt Mental Status: mental status grossly normal Speech and movement: Normal speech and movement present Affect: normal affect Attitude: cooperative Thought process: Normal thought process present and not confabulating Thought content: Normal thought content present Insight: Poor insight present (Psych) Judgement: Poor judgement present (Psych) Results Reviewed Results Reviewed: Laboratory Tests 03/29/23 16:04 Estimated GFR > 60 Total Bilirubin 0.5 AST 10 ALT 12 Alkaline Phosphatase 93 C-Reactive Protein 0.23 Tiss Transglutamin IgG <1.0 Tiss Transglutamin IgA <1.0 RAST SHOWS NO SIGNIFICANT FOOD ALLERGIES ULTRASOUND OF THE ABDOMEN EGD/COLONOSCOPY Findings: Larynx:normal Esophagus: GE junction at 40 cm, diaphragm hiatus at 40 cm, mild erythema and irregular Z line, biopsies taken Stomach: Patchy erythema. Biopsies were obtained. Grade 2 flap valve on retroflexed examination of the cardia. Possible gastroparesis, there appeared to be reduced gastric motility. Duodenum: Normal bulb and descending duodenum, bx taken Findings: Terminal Ileum-normal, random bx taken Random colon bx taken Cecum:normal Ascending Colon: normal Transverse Colon -normal Descending Colon:normal Sigmoid Colon: moderate diverticulosis with luminal narrowing and mucosal hypertrophy Rectum: Retroflexion with small internal hemorrhoids, grade I, 4-6 mm sessile polyp removed with cold forceps Anorectum - normal Impression and Post Procedure Diagnosis: Endoscopy Findings: gastritis esophagitis possible gastroparesis Colonoscopy Findings: diverticulosis colon polyp internal hemorrhoids Plan: Await Pathology results Repeat Colonoscopy in 5-7 years if adenomatous polyp, 10 yrs if hyperplastic or earlier if clinically indicated High fiber diet leaflet avoid straining at stool, epsom salts and sitz bath, anusol supps or cream consider gastric emptying study if ongoing sx BIOPSY Received: 01/04/24 ADDENDUM REPORT Addendum Addendum #1 CD117 Immunohistochemistry (# cells per high powered field): A. Terminal ileum (43 mast cells per high power field) B. Colon (33 mast cells per high power field) C. Rectum, biopsy (25 mast cells per high power field) GI tract involvement by systemic mastocytosis is characterized by aggregates of atypical appearing mast cells, which are often oval or spindle-shaped - features not seen in the current specimens. In reactive processes, mast cells are not atypical appearing and occur singly (as in this case). In one study (Zeke et al. PMID [id number]), the number of mast cells per high-powered field in IBS patients with diarrhea was elevated compared to asymptomatic patients (30 per high-powered field for IBS; 26 per high- powered field for asymptomatic patients in colon biopsies; statistically significant). Mast cell density in other areas of the GI tract is not well characterized. There are myriad other causes of elevated mast cells in GI mucosa, including allergies, celiac disease, malignancies, infections and drugs, among other etiologies (Belkis, carlos al. PMID [id number]). Correlation with the patient's clinical presentation and other laboratory studies is necessary. Electronically Signed By: Candace Villa MD 01/10/24 1207 Diagnosis A. Terminal ileum, biopsy: Ileal mucosa within normal limits; negative for active or chronic ileitis. B. Colon, random, biopsy: Colonic mucosa within normal limits; negative for active, chronic or microscopic colitis. C. Rectum, polypectomy: Tubular adenoma; negative for high-grade dysplasia. D. Duodenum, biopsy: Duodenal mucosa within normal limits; preserved villous architecture and no increased intraepithelial lymphocytes seen. E. Stomach, biopsy: Gastric antral and body mucosa within normal limits; negative for Helicobacter pylori, intestinal metaplasia and dysplasia. Patient: Jerri Nichole Age/Sex: 48/F MR#: [id number] Page 1 of 3 Surgical Pathology [id number] F. Gastroesophageal junction, biopsy: Gastric cardia-type mucosa with mild chronic inflammation; no squamous mucosa seen; negative for intestinal metaplasia and dysplasia. G. Esophagus, distal, biopsy: Squamous mucosa within normal limits; negative for inflammation (including intraepithelial eosinophils), fungal organisms, intestinal metaplasia and dysplasia. COMMENT: The immunohistochemical studies for CD117 have been ordered and results will be reported in an addendum. Assessment & Plan Assessment & Plan (1) RUQ abdominal pain: Code(s): R10.11 - Right upper quadrant pain Category: Medical (2) Diarrhea: Code(s): R19.7 - Diarrhea, unspecified Category: Medical (3) GERD (gastroesophageal reflux disease): Code(s): K21.9 - Gastro-esophageal reflux disease without esophagitis Category: Medical (4) Left upper quadrant abdominal swelling, mass and lump: Code(s): R19.02 - Left upper quadrant abdominal swelling, mass and lump Category: Medical (5) Irritable bowel syndrome with diarrhea: Code(s): K58.0 - Irritable bowel syndrome with diarrhea Category: Medical Plan She is agreeable to a 5 year follow up. She continues to have pain periumbilical adn diarrhea. She admits that she eats as fast as I can, but is always hungry. I don't think she has gastroparesis with this presentation, she is just overwhelming her GI system. This is also true of her wt gain. US not obtained. I am going to reorder this exam because she has a perceived lump that is painful to her in the left upper quadrant that we need to explore. She is also questioning whether she has ?retaining water.? I do not think she is retaining water but the ultrasound will help us to decide this. She has been on dicyclomine but it has not helped with her symptoms. I think were going to progress her to imipramine and titrate it to affect her side effect. This is a better medication in that it is a bit stronger, the dosing regimen is easier to comply with, and also help her sleep. Since the pain tends to affect her sleep and she has trouble with this it could be a when when situation. She continues on omeprazole but of course will stop the dicyclomine. Return office visit in 4 weeks Orders: Orders US abdomen complete 01/18/24 R19.02 - Left upper quadrant abdominal swelling, mass and lump Medications: New imipramine HCl 10 mg PO BEDTIME 30 tabs 6RF 30 days K58.0 - Irritable bowel syndrome with diarrhea omeprazole 20 mg PO DAILY 30 caps 6RF K58.0 - Irritable bowel syndrome with diarrhea Coding Level of Care Code Est Pt Level 4 (04223) Diagnoses RUQ abdominal pain R10.11 Diarrhea R19.7 GERD (gastroesophageal reflux disease) K21.9 Left upper quadrant abdominal swelling, mass and lump R19.02 Irritable bowel syndrome with diarrhea K58.0 Time Spent (min) 36
[2024-01-18 10:04] VITALS: BP 120/76; PULSE 86; BMI 27.7
== END 2024-01-18 10:57 | disposition home or self-care (01) ==
PROVIDERS: PCP Internal Medicine; Visit Provider Nurse Practitioner
DX: R10.11 Right upper quadrant pain (principal); R19.7 Diarrhea, unspecified; K21.9 Gastro-esophageal reflux disease without esophagitis; R19.02 Left upper quadrant abdominal swelling, mass and lump; K58.0 Irritable bowel syndrome with diarrhea
CPT/HCPCS: 99214

== ENCOUNTER → 2024-01-18 09:52 | Outpatient (BNVA) | payer MEDICAID, SELFPAY | PROVIDERS: PCP Internal Medicine; Visit Provider Nurse Practitioner | DX: R19.7 Diarrhea, unspecified (principal); R10.11 Right upper quadrant pain; K21.9 Gastro-esophageal reflux disease without esophagitis; R19.02 Left upper quadrant abdominal swelling, mass and lump; K58.0 Irritable bowel syndrome with diarrhea | CPT/HCPCS: 99212 ==

== ENCOUNTER 2024-02-13 09:12 | Outpatient (REF) | payer MEDICAID, SELFPAY ==
--- NOTE | ~2024-02-13 | US_ITS ---
EXAMINATION: US ABDOMEN COMPLETE CLINICAL INFORMATION: Left upper quadrant abdominal swelling, mass and lump. COMPARISON: None available. TECHNIQUE: Real-time imaging of the abdominal viscera. FINDINGS: PANCREAS: Only visualized proximally, but is otherwise unremarkable. ABDOMINAL AORTA: The proximal, mid, and distal segments are normal in caliber. INFERIOR VENA CAVA: Visualized portions are normal. LIVER: The liver is normal in size. The liver contour is normal. There is diffuse increased liver parenchymal echogenicity, consistent with hepatic steatosis. Focal fatty sparing adjacent to the gallbladder fossa. There is no intrahepatic biliary duct dilatation seen. GALLBLADDER: Normal. The gallbladder is physiologically distended without evidence of stones, sludge, polyps, wall thickening or pericholecystic fluid. COMMON BILE DUCT: Normal in caliber measuring 0.2 cm in diameter. RIGHT KIDNEY: Normal. No hydronephrosis. No renal calculi or focal parenchymal lesions. The kidney measures 10.0 cm in maximum dimension. LEFT KIDNEY: No hydronephrosis. No focal parenchymal lesions. The kidney measures 9.4 cm in maximum dimension. Punctate nonobstructing calculus in the lower pole. SPLEEN: Normal. The spleen measures 10.1 cm in maximum dimension. FREE FLUID: None. ADDITIONAL FINDINGS: No abnormality or hernia identified in the patient's area of pain in the left upper quadrant. US/US abdomen complete IMPRESSION: 1. Hepatic steatosis. 2. Punctate nonobstructing left lower pole renal calculus. 3. No abnormality or hernia identified in the patient's area of pain in the left upper quadrant. Electronically signed by: Megan Tyson MD 02/26/2024 04:05 PM EDT
== END 2024-02-13 09:13 | disposition home or self-care (01) ==
LOC: HO.US 09:12
PROVIDERS: Visit Provider Nurse Practitioner
DX: R19.02 Left upper quadrant abdominal swelling, mass and lump (principal)
CPT/HCPCS: 76700

== ENCOUNTER 2025-05-14 11:58 | Outpatient (REF) | payer MEDICAID, SELFPAY ==
--- OUTSIDE RECORDS SUMMARY | 2025-05-14 12:02 | XMS_ITS | Encounter Summary ---
Author Organization [employer] Address [address] [place] [address] [address] [address] Care Team Providers Care Food Service Name Role Phone Sterling Rose MD Primary Care Prov ider Reese Hatch Unavailable Unavailable Pam Neal RN Unavailable Unavailable Sal Cooper Unavailable Reason for Visit * Reason Onset Date Comments Referral 11/21/2022 Encounter Details Date Type Department Care Team ([facility] st Contact Info) Description 11/21/2022 Telephone [facility] CHC MED & PEDS [address] [place], [place] [phone] Sterling Rose MD [address] [place], [place] [phone] Referral Social History Tobacco Use Types Packs/Day Years Used Date Smoking Tobacco: Never Assessed Comments Unknown Sex and Gender Information Value Date Recorded Sex Assigned at Female 03/21/2022 10:31 AM EDT Legal Sex Female 10:31 AM EDT Gender Identity Female 03/21/2022 10:31 AM EDT Sexual Orientation Straight 03/21/2022 10 :31 AM EDT documented as of this encounter Miscellaneous Notes * Telephone Encounter - Lindsey Lockett - 12/05/2022 1:45 PM EDT Good afternoon, in order to process referral for endo I will need chart notes pertaining to DX. Thank you * Telephone Encounter - April Arevalo - 11/21/2022 11:58 AM EDT Tc from pt requesting a new referral for another dermatology. Pt states that it is getting worse and would like a second opinion. Please contact pt at [phone] documented in this encounter Plan of Treatment Not on file documented as of this encounter Visit Diagnoses Not on filedocumented in this encounter Additional Health Concerns Assessment Noted Time PHQ-9 Depression Total Score: 11 023 9:38 AM EDT documented as of this encounter Care Teams Food Service Relationship Specialty Start Date End Date Sterling Rose MD [address] [place] [address] PCP - General Internal Medicine 09/30/19 Reese Hatch FNP [address] [place] [address] Nurse Practitioner Family Medicine 04/10/23 Pam Neal, GABBY [address] [place] [address] Registered Nurse Family Medicine 10/28/24 10/28/24 Sal Cooper 10/28/24 12/31/24 documented as of this encounter
--- OUTSIDE RECORDS SUMMARY | 2025-05-14 12:02 | XMS_ITS | Encounter Summary ---
Author Organization [employer] Address [address] [facility] 7 [place] [address] Care Team Providers Care Mail Carrier Technician Name Role Phone Sterling Rose MD Primary Care Prov ider Reese Hatch Unavailable Unavailable Pam Neal RN Unavailable Unavailable Sal Cooper Unavailable Encounter Details Date Type Department Care Team (Late st Contact Info) Description 01/12/2023 Orders Only [facility] CHC MED & PEDS [address] [place] [address] Sterling Rose MD [address] [place] [address] Social History Tobacco Use Types Packs/Day Years Used Date Smoking Tobacco: Never Assessed Comments Unknown Sex and Gender Information Value Date Recorded Sex Assigned at Female 03/21/2022 10:31 AM EDT Legal Sex Female 10:31 AM EDT Gender Identity Female 03/21/2022 10:31 AM EDT Sexual Orientation Straight 03/21/2022 10 :31 AM EDT documented as of this encounter Plan of Treatment Not on file documented as of this encounter Visit Diagnoses Not on filedocumented in this encounter Additional Health Concerns Assessment Noted Time PHQ-9 Depression Total Score: 7 12/06/19 23 2:05 PM EDT documented as of this encounter Care Teams Mail Carrier Technician Relationship Specialty Start Date End Date Sterling Rose MD [address] [place] [address] PCP - General Internal Medicine 09/30/19 Reese Hatch FNP [address] [place] [address] Nurse Practitioner Family Medicine 04/10/23 Pam Neal RN [address] [place] [address] Registered Nurse Family Medicine 10/28/24 10/28/24 Sal Cooper 10/28/24 12/31/24 documented as of this encounter
--- OUTSIDE RECORDS SUMMARY | 2025-05-14 12:03 | XMS_ITS | Encounter Summary ---
Author Organization [employer] Address [address] [facility] 7 [place] [address] Care Team Providers Care Edge Glue Machine Tender Name Role Phone Sterling Rose MD Primary Care Prov ider Reese Hacth Unavailable Unavailable Pam Neal RN Unavailable Unavailable Sal Cooper Unavailable Reason for Visit * Reason Onset Date Comments Referral 05/04/2023 Encounter Details Date Type Department Care Team ([facility] st Contact Info) Description 05/04/2023 Telephone [facility] MED & PEDS [address] [place], [place] [phone] Sterling Rose MD [address] [place], [place] [phone] Referral Social History Tobacco Use Types Packs/Day Years Used Date Smoking Tobacco: Former Cigarettes Depression Answer Date Recorded Patient Health Questionnaire-9 Score 18 04/10/2023 Patient Health Questionnaire-9 Score 18 04/10/2023 Last PHQ-9: Questionnaire Data Not on file 1 06/10/2022 Housing Stability Answer Date Recorded What is your housing situation today? I have almamonisha jones 03/06/[address] you li ve. Do you have problems with any of the following? None of the above 03/06/2023 Food Insecurity Answer Date Recorded Within the past 12 months, y ou worried that your food would run out before you got money to buy more: Never True 03/06/2023 Within the past 12 months,th e food you bought just didn't last and you didn't have enough money to get more: Never True Transportation Answer Date Recorded In the past 12 months, has l ack of transportation kept you from medical appts, meetings, work or from getting things needed for daily living? No 03/06/2023 Utilities Answer Date Recorded In the past 12 months, has t he electric, gas, oil or water company threatened to shut off services in your home? No 03/06/2023 Depression Answer Date Recorded Patient Health Questionnaire-2 Score 6 04/10/2023 Comments Unknown Sex and Gender Information Value Date Recorded Sex Assigned at Female 03/21/2022 10:31 AM EDT Legal Sex Female 10:31 AM EDT Gender Identity Female 03/21/2022 10:31 AM EDT Sexual Orientation Straight 03/21/2022 10 :31 AM EDT documented as of this encounter Miscellaneous Notes * Telephone Encounter - Johnson Mayer - 05/17/2023 2:21 PM EST Tc from patient calling to request status in regards to message below * Telephone Encounter - Nancy Farooq NP - 05/04/2023 8:48 PM EST Campos! Yes, I saw this patient during my mentoring session with her PCP on 03/27. The note from thatvisit is not signed and the cardiology referral is pended. I have reached out to the PCP to review the note and sign the order as I was not credentialed with the patient's insurance to perform this task at the time of this visit. I have cc'ed him on this message as well. Thanks * Telephone Encounter - Aidee Cooper - 05/04/2023 10:57 AM EST Tc from pt requesting status on referral to cardiology. Pt not was not cleared for cataract surgerydue to cardiac pain and was advised by PCP would be referred to a technical support analyst. 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 documented in this encounter Plan of Treatment Not on file documented as of this encounter Visit Diagnoses Not on filedocumented in this encounter Additional Health Concerns Assessment Noted Time PHQ-9 Depression Total Score: 18 023 11:00 AM EST documented as of this encounter Care Teams Edge Glue Machine Tender Relationship Specialty Start Date End Date Sterling Rose MD [address] [place] [phone] PCP - General Internal Medicine 09/30/19 Reese Hatch FNP [address] [place] [address] Nurse Practitioner Family Medicine 04/10/23 Pam Neal RN [address] [place] [address] Registered Nurse Family Medicine 10/28/24 10/28/24 Sal Cooper 10/28/24 12/31/24 documented as of this encounter
--- OUTSIDE RECORDS SUMMARY | 2025-05-14 12:03 | XMS_ITS | Encounter Summary ---
Author Organization [employer] Address [address] [facility] 7t [place] [address] Care Team Providers Care Head Men'S Tennis Coach Name Role Phone Sterling Rose MD Primary Care Prov ider Reese Hatch Unavailable Unavailable Pam Neal RN Unavailable Unavailable Sal Cooper Unavailable Reason for Visit * Reason Onset Date Comments Med Refill 09/11/2024 Encounter Details Date Type Department Care Team (Late st Contact Info) Description 09/11/2024 Telephone [facility] MEDICINE [address] [place] [address] Sterling Rose MD [address] [place] [address] Med Refill Social History Tobacco Use Types Packs/Day Years Used Date Smoking Tobacco: Former Cigarettes Depression Answer Date Recorded Patient Health Questionnaire-9 Score 7 11/30/2023 Patient Health Questionnaire-9 Score 7 11/30/2023 Last PHQ-9: Questionnaire Data Not on file 0 11/30/2023 Housing Stability Answer Date Recorded What is your housing situation today? I have alma robert 03/06/[address] you li [...] Answer Date Recorded Patient Health Questionnaire-2 Score 1 11/30/2023 Comments Unknown Sex and Gender Information Value Date Recorded Sex Assigned at Female 03/21/2022 10:31 AM EDT Legal Sex Female 10:31 AM EDT Gender Identity Female 03/21/2022 10:31 AM EDT Sexual Orientation Straight 03/21/2022 10 :31 AM EDT documented as of this encounter Miscellaneous Notes * Telephone Encounter - Gregory Benz - 09/11/2024 8:49 AM EDT TC from pt requesting medication refill. Medications needing refill : clonazePAM (KlonoPIN) 1 MG tablet To be sent to: [facility] - [place], [place] - [facility] documented in this encounter Plan of Treatment Not on file documented as of this encounter Visit Diagnoses Not on filedocumented in this encounter Additional Health Concerns Assessment Noted Time PHQ-9 Depression Total Score: 7 11/30/19 24 2:02 PM EDT documented as of this encounter Care Teams Head Men'S Tennis Coach Relationship Specialty Start Date End Date Sterling Rose MD [address] [place] [address] PCP - General Internal Medicine 09/30/19 Reese Hatch FNP [address] [place] [address] Nurse Practitioner Family Medicine 04/10/23 Pam Neal RN [address] [place] [address] Registered Nurse Family Medicine 10/28/24 10/28/24 Sal Cooper 10/28/24 12/31/24 documented as of this encounter
--- OUTSIDE RECORDS SUMMARY | 2025-05-14 12:03 | XMS_ITS | Encounter Summary ---
Author Organization [employer] Address [address] [facility] [address] [place] [facility] [place] [address] Care Team Providers Care Shop Superintendent Name Role Phone Sterling Rose MD Primary Care Prov ider Reese Hatch Unavailable Unavailable Pam Neal RN Unavailable Unavailable Sal Cooper Unavailable Reason for Visit * Reason Onset Date Comments Ultrasound order Needed 05/31/2023 Encounter Details Date Type Department Care Team ([facility] st Contact Info) Description 05/31/2023 Telephone [facility] MED & PEDS [address] [place], [place] [phone] Sterling Rose MD [address] [place] [address] Ultrasound order Needed Social History Tobacco Use Types Packs/Day Years Used Date Smoking Tobacco: Former Cigarettes Depression Answer Date Recorded Patient Health Questionnaire-9 Score 10 05/09/2023 Patient Health Questionnaire-9 Score 10 05/09/2023 Last PHQ-9: Questionnaire Data Not on file 1 07/10/2022 Housing Stability Answer Date Recorded What is [...] Answer Date Recorded Patient Health Questionnaire-2 Score 4 05/09/2023 Comments Unknown Sex and Gender Information Value Date Recorded Sex Assigned at Female 03/21/2022 10:31 AM EDT Legal Sex Female 10:31 AM EDT Gender Identity Female 03/21/2022 10:31 AM EDT Sexual Orientation Straight 03/21/2022 10 :31 AM EDT documented as of this encounter Miscellaneous Notes * Telephone Encounter - Lyudmila Palomo RN - 05/31/2023 4:11 PM EST Noted pt. Had mammo screening at [facility] 05/18/23, result was birads 2 (benign). TC returned to [phone] to inquire on need for US? They report since breasts were heterogeneously dense, they gave the option to pt. Of obtaining additional imaging which pt. Opted for. They report this would be a ultrasound screening of bilateral breasts. Pt. Is not yet scheduled. Advised radiology team requestfor ultrasound order would be requested from PCP. Mammo results are in chart. * Telephone Encounter - April Arevalo - 05/31/2023 1:07 PM EST Tc from [facility] with [facility] Scheduling requesting an Ultrasound Order for breast due to pt's last Mammogram exam results. Please fax over to [phone] Please contact Gladis @ [phone] Opt 1 Radiology . documented in this encounter Plan of Treatment Not on file documented as of this encounter Visit Diagnoses Not on filedocumented in this encounter Additional Health Concerns Assessment Noted Time PHQ-9 Depression Total Score: 10 05/09/ 023 10:13 AM EST documented as of this encounter Care Teams Shop Superintendent Relationship Specialty Start Date End Date Sterling Rose MD [address] [place] [address] PCP - General Internal Medicine 09/30/19 Reese Hatch FNP [address] [place] [address] Nurse Practitioner Family Medicine 04/10/23 Pam Neal, GABBY [address] [place] [address] Registered Nurse Family Medicine 10/28/24 10/28/24 Sal Cooper 10/28/24 12/31/24 documented as of this encounter
--- OUTSIDE RECORDS SUMMARY | 2025-05-14 12:03 | XMS_ITS | Encounter Summary ---
Author Organization [employer] Address [address] [facility] [address] [place] [address] Care Team Providers Care Art Professor Name Role Phone Sterling Rose MD Primary Care Prov ider Reese Hatch Unavailable Unavailable Pam Neal RN Unavailable Unavailable Sal Cooper Unavailable Reason for Visit * Reason Onset Date Comments Nurse Triage 12/06/2023 Encounter Details Date Type Department Care Team ([facility] st Contact Info) Description 12/06/2023 Telephone [facility] MED & PEDS [address] [place], [place] [phone] Sterling Rose MD [address] [place], [place] [phone] Nurse Triage Social History Tobacco Use Types Packs/Day Years Used Date Smoking Tobacco: Former Cigarettes Depression Answer Date Recorded Patient Health Questionnaire-9 Score 7 11/30/2023 Patient Health Questionnaire-9 Score 7 11/30/2023 Last PHQ-9: Questionnaire Data Not on file 0 11/30/2023 Housing Stability Answer Date Recorded What is your housing situation today? I have alma sing 03/06/[address] you li [...] encounter Miscellaneous Notes * Telephone Encounter - Mariaa Perry LPN - 12/06/2023 11:56 AM EDT Please obtain [facility] ED records from last night 12/05/23. Also please request any recent imaging and visits to ED unfortunately dates unknown. * Telephone Encounter - Mariaa Perry LPN - 12/06/2023 11:48 AM EDT Triage call returned to patient. Patient was seen last night at [facility] ED for acute abdominal pain. Patient discharged to home. Continues with pain in upper abdomen. No vomiting. Intermittent diarrhea but unable to identify any blood or pus in stool as I don't look at it its disgusting . Patient told previously that she had IBS and Fatty Liver. Was told last night at ED that liver looked good . Patient reports significant weight gain all in abdomen going from a size Med to a 2XL in last several months with no changes to diet. Patient without any pain meds has no Tylenol at time of call. Patient reports that she has been to [facility] ED several times in last several months for this pain that goes from umbilicus to left upper quadrant. Patient without fever. Patient sent home with DX of Enteritis. Records requested now. Patient with rapid speech, anxious as to treatment and if infectious for family members reassurance provided. Reviewed with patient home care recommendations and reasons to call back. Pt verbalized understanding and agrees. Disposition reviewed and patient in agreement with plan. TSK/PCP today at 230pm. Protocol Used: Abdominal Pain - Upper (Adult) Protocol-Based Disposition: See in Office or Video Visit Today Video visit offered and caller accepted Positive Triage Question: * Patient wants to be seen * All higher-acuity triage questions were negative Care Advice Discussed: * Drink Clear Fluids * Diet * Reasons To Call Back - Severe pain present over 1 hour - Constant pain present over 2 hours - Moderate pains come and go for more than 24 hours - Mild pains come and go for more than 72 hours - You become worse * Telephone Encounter - Nimo Carlos - 12/06/2023 11:16 AM EDT Symptom: Abdominal Pain - Female - Not Outcome: Schedule an urgent appointment (within 4 hours) or talk to a nurse or provider soon Reason: Getting worse The caller accepted this outcome Pt informs went to [facility] 12/05/23 but still is experiencing symptoms. documented in this encounter Plan of Treatment Not on file documented as of this encounter Visit Diagnoses Not on filedocumented in this encounter Additional Health Concerns Assessment Noted Time PHQ-9 Depression Total Score: 7 11/30/19 24 2:02 PM EDT documented as of this encounter Care Teams Art Professor Relationship Specialty Start Date End Date Sterling Rose MD [address] [place] [address] PCP - General Internal Medicine 09/30/19 Reese Hatch FNP [address] [place] [address] Nurse Practitioner Family Medicine 04/10/23 Pam Neal, GABBY [address] [place] [address] Registered Nurse Family Medicine 10/28/24 10/28/24 Sal Cooper 10/28/24 12/31/24 documented as of this encounter
--- OUTSIDE RECORDS SUMMARY | 2025-05-14 12:03 | XMS_ITS | Encounter Summary ---
Author Organization [employer] Address [address] [facility] 7t [place] [address] Care Team Providers Care Slipman Name Role Phone Sterling Rose MD Primary Care Prov ider Reese Hatch Unavailable Unavailable Pam Neal RN Unavailable Unavailable Sal Cooper Unavailable Reason for Visit * Reason Comments Med Refill Encounter Details Date Type Department Care Team ([facility] st Contact Info) Description 10/07/2022 Refill [facility] MEDICINE [address] [place] [address] Reese Hatch FNP ADAM (generalized anxiety disorder) Social History Tobacco Use Types Packs/Day Years Used Date Smoking Tobacco: Never Assessed Comments Unknown Sex and Gender Information Value Date Recorded Sex Assigned at Female 03/21/2022 10:31 AM EDT Legal Sex Female 10:31 AM EDT Gender Identity Female 03/21/2022 10:31 AM EDT Sexual Orientation Straight 03/21/2022 10 :31 AM EDT COVID-19 Exposure Response Date Recorded In the last 10 days, have yo u been in contact with someone who was confirmed or suspected to have Coronavirus/COVID-19? No / Unsure 09/13/2022 11:26 AM EDT documented as of this encounter Miscellaneous Notes * Telephone Encounter - CAMRYN Arevalo - 10/11/2022 12:44 PM EDT Already refilled documented in this encounter Plan of Treatment Not on file documented as of this encounter Visit Diagnoses Diagnosis ADAM (generalized anxiety disorder) Generalized anxiety disorder documented in this encounter Additional Health Concerns Assessment Noted Time PHQ-9 Depression Total Score: 2 08/09/19 23 2:24 PM EDT documented as of this encounter Care Teams Slipman Relationship Specialty Start Date End Date Sterling Rose MD [address] [place] [phone] PCP - General Internal Medicine 09/30/19 Reese Hatch FNP [address] [place] [address] Nurse Practitioner Family Medicine 04/10/23 Pam Neal RN [address] [place] [address] Registered Nurse Family Medicine 10/28/24 10/28/24 Sal Cooper 10/28/24 12/31/24 documented as of this encounter
--- OUTSIDE RECORDS SUMMARY | 2025-05-14 12:03 | XMS_ITS | Encounter Summary ---
Author Organization [employer] Address [address] [facility] 7t [place] [address] Care Team Providers Care Access Services Librarian Name Role Phone Sterling Rose MD Primary Care Prov ider Reese Hatch Unavailable Unavailable Pam Neal RN Unavailable Unavailable Sal Cooper Unavailable Encounter Details Date Type Department Care Team ([facility] st Contact Info) Description 10/31/2023 Telephone [facility] CHC MED & PEDS [address] [place], [place] [phone] Sterling Rose MD [address] [place], [place] [phone] Social History Tobacco Use Types Packs/Day Years Used Date Smoking Tobacco: Former Cigarettes Depression Answer Date Recorded Patient Health Questionnaire-9 Score 12 10/19/2023 Patient Health Questionnaire-9 Score 12 10/19/2023 Last PHQ-9: Questionnaire Data Not on file 0 10/19/2023 Housing Stability Answer Date Recorded What is your housing situation today? I have alma jones 03/06/[address] you [...] Answer Date Recorded Patient Health Questionnaire-2 Score 3 10/19/2023 Comments Unknown Sex and Gender Information Value [...] Assessment Noted Time PHQ-9 Depression Total Score: 12 024 3:41 PM EDT documented as of this encounter Care Teams Access Services Librarian Relationship Specialty Start Date End Date Sterling Rose MD [address] [place] [address] PCP - General Internal Medicine 09/30/19 Reese Hatch FNP [address] [place] [address] Nurse Practitioner Family Medicine 04/10/23 Pam Neal RN [address] [place] [address] Registered Nurse Family Medicine 10/28/24 10/28/24 Sal Cooper 10/28/24 12/31/24 documented as of this encounter
--- OUTSIDE RECORDS SUMMARY | 2025-05-14 12:03 | XMS_ITS | Encounter Summary ---
Author Organization [employer] Address [address] [facility] 7t [place] [address] Care Team Providers Care Special Education Paraeducator Name Role Phone Sterling Rose MD Primary Care Prov ider Reese Hatch Unavailable Unavailable Pam Neal RN Unavailable Unavailable Sal Cooper Unavailable Encounter Details Date Type Department Care Team (Late st Contact Info) Description 05/24/2023 Orders Only [facility] CHC MED & PEDS [address] [place], [place] [phone] Sterling Rose MD [address] [place], [place] [phone] Social History Tobacco Use Types Packs/Day Years [...] Noted Time PHQ-9 Depression Total Score: 10 023 10:13 AM EST documented as of this encounter Care Teams Special Education Paraeducator Relationship Specialty Start Date End Date Sterling Rose MD [address] [place] [address] PCP - General Internal Medicine 09/30/19 Reese Hatch FNP [address] [place] [address] Nurse Practitioner Family Medicine 04/10/23 Pam Neal RN [address] [place] [address] Registered Nurse Family Medicine 10/28/24 10/28/24 Sal Cooper 10/28/24 12/31/24 documented as of this encounter
--- OUTSIDE RECORDS SUMMARY | 2025-05-14 12:03 | XMS_ITS | Encounter Summary ---
Author Organization [employer] Address [address] [facility] 7t [place] [address] Care Team Providers Care Fabric Coating Supervisor Name Role Phone Sterling Rose MD Primary Care Prov ider Reese Hatch Unavailable Unavailable Pam Neal RN Unavailable Unavailable Sal Cooper Unavailable Reason for Visit * Reason Onset Date Comments Call Back Request 08/09/2023 Encounter Details Date Type Department Care Team (Late st Contact Info) Description 08/09/2023 Telephone [facility] MEDICINE [address] [place] [address] Sterilng Rose MD [address] [place] [address] Call Back Request Social History Tobacco Use Types Packs/Day Years Used Date Smoking Tobacco: Former Cigarettes Depression Answer Date Recorded Patient Health Questionnaire-9 Score 10 06/26/2023 Patient Health Questionnaire-9 Score 10 06/26/2023 Last PHQ-9: Questionnaire Data Not on file 0 06/26/2023 Housing Stability Answer Date Recorded What is [...] Answer Date Recorded Patient Health Questionnaire-2 Score 2 06/26/2023 Comments Unknown Sex and Gender Information Value Date Recorded Sex Assigned at Female 03/21/2022 10:31 AM EDT Legal Sex Female 10:31 AM EDT Gender Identity Female 03/21/2022 10:31 AM EDT Sexual Orientation Straight 03/21/2022 10 :31 AM EDT documented as of this encounter Miscellaneous Notes * Telephone Encounter - Johnson Mayer - 08/09/2023 9:36 AM EDT Tc from patient requesting the status of the Helium Arc Welder appt states was suppose receive a call on08/06 to schedule appt documented in this encounter Plan of Treatment Not on file documented as of this encounter Visit Diagnoses Not on filedocumented in this encounter Additional Health Concerns Assessment Noted Time PHQ-9 Depression Total Score: 10 024 2:15 PM EST documented as of this encounter Care Teams Fabric Coating Supervisor Relationship Specialty Start Date End Date Sterling Rose MD [address] [place] [address] PCP - General Internal Medicine 09/30/19 Reese Hatch FNP [address] [place] [address] Nurse Practitioner Family Medicine 04/10/23 Pam Neal, GABBY [address] [place] [phone] Registered Nurse Family Medicine 10/28/24 10/28/24 Sal Cooper 10/28/24 12/31/24 documented as of this encounter
--- OUTSIDE RECORDS SUMMARY | 2025-05-14 12:03 | XMS_ITS | Encounter Summary ---
Author Organization [employer] Address [address] [facility] 7 [place] [address] Care Team Providers Care Chemistry Laboratory Technician Name Role Phone Sterling Rose MD Primary Care Prov ider Reese Hatch Unavailable Unavailable Reason for Visit * Reason Comments Med Refill Encounter Details Date Type Department Care Team ([facility] Contact Info) Description 05/12/2025 Refill [facility] [address] [place] [address] Sterling Rose MD [address] [place] [address] ADAM (generalized anxiety disorder) Social History Tobacco Use Types Packs/Day Years Used Date Smoking Tobacco: Former Cigarettes Depression Answer Date Recorded Patient Health Questionnaire-9 Score 0 03/17/2025 Patient Health Questionnaire-9 Score 0 03/17/2025 Last PHQ-9: Questionnaire Data Not on file 1 Housing Stability Answer Date Recorded What is your housing situation today? I have alma jones 10/28/[address] you li ve. Do you have problems with any of the following? None of the above 10/28/2024 Food Insecurity Answer Date Recorded Within the past 12 months, y ou worried that your food would run out before you got money to buy more: Often true 10/28/2024 Within the past 12 months,th e food you bought just didn't last and you didn't have enough money to get more: Often true 01/2025 Transportation Answer Date Recorded In the past 12 months, has l ack of transportation kept you from medical appts, meetings, work or from getting things needed for daily living? No 10/28/2024 Utilities Answer Date Recorded In the past 12 months, has t he electric, gas, oil or water company threatened to shut off services in your home? No 10/28/2024 Depression Answer Date Recorded Patient Health Questionnaire-2 Score 0 03/17/2025 Internet Access Answer Date Recorded Internet Access Q1 Yes 10/28/2024 Internet Access Q2 Not on file 10/28/2024 Comments Unknown Sex and Gender Information Value [...] Assessment Noted Time PHQ-9 Depression Total Score: 0 03/17/20 25 3:10 PM EDT documented as of this encounter Care Teams Chemistry Laboratory Technician Relationship Specialty Start Date End Date Sterling Rose MD [address] [place] [address] PCP - General Internal Medicine 09/30/19 Reese Hatch FNP [address] [place] [address] Nurse Practitioner Family Medicine 04/10/23 documented as of this encounter
--- OUTSIDE RECORDS SUMMARY | 2025-05-14 12:03 | XMS_ITS | Clinical Summary ---
Author Organization [facility] Address [address] [place] [phone] Phone Care Team Providers Care News Reel Cameraman Name Role Phone Vane Cheung MD Primary Care Pr ovider Medications levothyroxine (SYNTHROID) 112 MCG tabletIndication s:Hypothyroidism , unspecified type Take 1 tablet (112 mcg total) by mouth every morning. 90 tablet 1 09/29/2022 Active Social History Tobacco Use Types Packs/Day Years Used Date Smoking Tobacco: Never Assessed Digital Access Answer Date Recorded No 10/18/2022 No 10/18/2022 Reliable internet access at home? Not on file 10/18/2022 Device with a working camera? Not on file Comments Unknown Sex and Gender Information Value Date Recorded Sex Assigned at Not on file Legal Sex Female 8:59 AM EDT Gender Identity Not on file Sexual Orientation Not on file Plan of Treatment Health Maintenance Due Date Last Done Comments Adult Td,Tdap Booster 1974 LIPID PANEL 1974 TSH LEVEL 1974 DEPRESSION SCREENING 1986 SMOKING Hx and SMOKELESS TOB ACCO SCREENING 10/03/1987 HEPATITIS C SCREENING 1992 HIV ONE-TIME SCREENING (18-6 5 YEARS) 1992 PAP SMEAR 10/03/1995 MAMMOGRAM 2014 COLOGUARD 10/03/2019 COLONOSCOPY 10/03/2019 COLORECTAL CANCER SCREENING 10/03/2019 FIT TEST 10/03/2019 FOBT 10/03/2019 SIGMOIDOSCOPY 10/03/2019 VIRTUAL COLONOSCOPY 10/03/2019 PNEUMOCOCCAL VACCINES (50+ y ears) (1 of 1 - PCV) 2024 ZOSTER VACCINES (1 of 2) 2024 INFLUENZA VACCINE (#1) 2024 COVID-19 VACCINE (1 - 2024-2 6 season) 2025 RSV VACCINE (1 - 1-dose 75+ series) 2049 HEPATITIS A VACCINES Aged Out No long er eligible based on patient's age to complete this topic HIB VACCINES Aged Out No longer eligi ble based on patient's age to complete this topic MENINGOCOCCAL VACCINES (ACWY) Aged Out No longer eligible based on patient's age to complete this topic MENINGOCOCCAL VACCINES (B) Aged Out N o longer eligible based on patient's age to complete this topic Medical Devices Not on file Insurance [address] [place] [address] [address] [place] [address] [employer] [place] [place] [address] [place] [address] [employer] Care Teams News Reel Cameraman Relationship Specialty Start Date End Date Vane Cheung MD PCP - General Internal Medicine 09/29/22 Additional Source Comments The information contained in this document represents components of the legal health record. It is not the complete legal health record.[facility]
--- OUTSIDE RECORDS SUMMARY | 2025-05-14 12:03 | XMS_ITS | Encounter Summary ---
Author Organization [employer] Address [address] [facility] [address] [place] [address] Care Team Providers Care Obstetrician/Gynecologist Name Role Phone Sterling Rose MD Primary Care Prov ider Reese Hatch Unavailable Unavailable Pam Neal RN Unavailable Unavailable Sal Cooper Unavailable Reason for Visit * Reason Onset Date Comments Appointment 06/21/2023 LVM-Re: her apt for today as [id number]@2:15pm Encounter Details Date Type Department Care Team (Late st Contact Info) Description 06/21/2023 Telephone [facility] MEDICINE [address] [place] [address] Sterling Rose MD [address] [place] [phone] Appointment (LVM-Re: her apt for today as [id number]-[id number]@2:15pm ) Social History Tobacco Use Types Packs/Day Years [...] encounter Miscellaneous Notes * Telephone Encounter - Inés Peres - 06/21/2023 9:09 AM EST Tc from pt requesting the nurses to make appt for her with [facility], pt states every time she call they told her Dr Stevenson needs to call to make the appt. documented in this encounter Plan of Treatment Not on file documented as of this encounter Visit Diagnoses Not on filedocumented in this encounter Additional Health Concerns Assessment Noted Time PHQ-9 Depression Total Score: 10 023 10:13 AM EST documented as of this encounter Care Teams Obstetrician/Gynecologist Relationship Specialty Start Date End Date Sterling Rose MD [address] [place], [place] [phone] PCP - General Internal Medicine 09/30/19 Reese Hatch FNP [address] [place] [address] Nurse Practitioner Family Medicine 04/10/23 Pam Neal RN [address] [place] [address] Registered Nurse Family Medicine 10/28/24 10/28/24 Sal Cooper 10/28/24 12/31/24 documented as of this encounter
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
--- OUTSIDE RECORDS SUMMARY | 2025-05-14 12:03 | XMS_ITS | Encounter Summary ---
Author Organization [email or web address] Address [address] [facility] 7 [place] [address] Care Team Providers Care Supervisor Brake Repair Name Role Phone Sterling Rose MD Primary Care Prov ider Reese Hatch Unavailable Unavailable Reason for Visit * Reason Onset Date Comments Results 04/01/2025 Encounter Details Date Type Department Care Team ([facility] st Contact Info) Description 04/01/2025 Telephone [facility] MEDICINE [address] [place] [address] Sterling Rose MD [address] [place] [address] Results Social History Tobacco Use Types Packs/Day Years [...] encounter Miscellaneous Notes * Telephone Encounter - Lacey Singletary - 04/01/2025 8:14 AM EST TC from pt requesting call back regarding Results. Type of results: Mammogram Date when done: 03/29 Facility: [facility] documented in this encounter Plan of Treatment Not on file documented as of this encounter Visit Diagnoses Not on filedocumented in this encounter Additional Health Concerns Assessment Noted Time PHQ-9 Depression Total Score: 0 03/17/20 25 3:10 PM EDT documented as of this encounter Care Teams Supervisor Brake Repair Relationship Specialty Start Date End Date Sterling Rose MD [address] [place] [address] PCP - General Internal Medicine 09/30/19 Reese Hatch FNP [address] [facility] [place] [address] Nurse Practitioner Family Medicine 04/10/23 documented as of this encounter
--- OUTSIDE RECORDS SUMMARY | 2025-05-14 12:03 | XMS_ITS | Encounter Summary ---
Author Organization [employer] Address [address] [facility] 7t [place] [address] Care Team Providers Care Lawnmower Repair Mechanic Name Role Phone Sterling Rose MD Primary Care Prov ider Reese Hatch Unavailable Unavailable Encounter Details Date Type Department Care Team (Latest Contact Info) Description 05/13/2025 Travel Social History Tobacco Use Types Packs/Day Years [...] documented as of this encounter Care Teams Lawnmower Repair Mechanic Relationship Specialty Start Date End Date Sterling Rose MD [address] [place] [address] PCP - General Internal Medicine 09/30/19 Reese Hatch FNP [address] [place] [address] Nurse Practitioner Family Medicine 04/10/23 documented as of this encounter
--- OUTSIDE RECORDS SUMMARY | 2025-05-14 12:03 | XMS_ITS | Encounter Summary ---
Author Organization [employer] Address [address] [facility] 7t [place] [address] Care Team Providers Care Feeder Loader Name Role Phone Sterling Rose MD Primary Care Prov ider Reese Hatch Unavailable Unavailable Pam Neal RN Unavailable Unavailable Sal Cooper Unavailable Reason for Visit * Reason Comments Med Refill Encounter Details Date Type Department Care Team ([facility] Contact Info) Description 05/04/2023 Refill [facility] MED & PEDS [address] [place], [place] [phone] Sterling Rose MD [address] [place] [address] Social History Tobacco Use Types Packs/Day Years [...] encounter Miscellaneous Notes * Telephone Encounter - Patricia Apodaca LPN - 05/04/2023 1:37 PM EST documented in this encounter Plan of Treatment Not on file documented as of this encounter Visit Diagnoses Not on filedocumented in this encounter Additional Health Concerns Assessment Noted Time PHQ-9 Depression Total Score: 18 023 11:00 AM EST documented as of this encounter Care Teams Feeder Loader Relationship Specialty Start Date End Date Sterling Rose MD [address] [place] [address] PCP - General Internal Medicine 09/30/19 Reese Hatch FNP [address] [place] [address] Nurse Practitioner Family Medicine 04/10/23 Pam Neal, GABBY [address] [place] [address] Registered Nurse Family Medicine 10/28/24 10/28/24 Sal Cooper 10/28/24 12/31/24 documented as of this encounter
--- OUTSIDE RECORDS SUMMARY | 2025-05-14 12:03 | XMS_ITS | Encounter Summary ---
Author Organization [employer] Address [address] [facility] 7 [place] [address] Care Team Providers Care Tea Tree Farmer Name Role Phone Sterling Rose MD Primary Care Prov ider Reese Hatch Unavailable Unavailable Pam Neal RN Unavailable Unavailable Sal Cooper Unavailable Reason for Visit * Reason Comments Med Refill Encounter Details Date Type Department Care Team ([facility] st Contact Info) Description 01/04/2024 Refill [facility] MED & PEDS [address] [place], [place] [phone] Sterling Rose MD [address] [place] [address] HSV (herpes simplex virus) infection Social History Tobacco Use Types Packs/Day Years [...] as of this encounter Visit Diagnoses Diagnosis HSV (herpes simplex virus) infection Herpes simplex without mention of complication documented in this encounter Additional Health Concerns Assessment Noted Time PHQ-9 Depression Total Score: 7 11/30/19 24 2:02 PM EDT documented as of this encounter Care Teams Tea Tree Farmer Relationship Specialty Start Date End Date Sterling Rose MD [address] [place] [phone] PCP - General Internal Medicine 09/30/19 Reese Hatch FNP [address] [place] [address] Nurse Practitioner Family Medicine 04/10/23 Pam Neal RN [address] [place] [address] Registered Nurse Family Medicine 10/28/24 10/28/24 Sal Cooper 10/28/24 12/31/24 documented as of this encounter
--- OUTSIDE RECORDS SUMMARY | 2025-05-14 12:03 | XMS_ITS | Encounter Summary ---
Author Organization [employer] Address [address] [facility] 7t [place] [address] Care Team Providers Care Inspector Plumbing Name Role Phone Sterling Rose MD Primary Care Prov ider Reese Hatch Unavailable Unavailable Pam Neal RN Unavailable Unavailable Sal Cooper Unavailable Encounter Details Date Type Department Care Team (Late st Contact Info) Description 09/04/[address] [facility] MEDICINE [address] [place] [address] Sterling Rose MD [address] [place] [address] Social History Tobacco Use Types Packs/Day Years [...] documented as of this encounter Care Teams Inspector Plumbing Relationship Specialty Start Date End Date Sterling Rose MD [address] [place] [address] PCP - General Internal Medicine 09/30/19 Reese Hatch FNP [address] [place] [address] Nurse Practitioner Family Medicine 04/10/23 Pam Neal, GABBY [address] [place] [address] Registered Nurse Family Medicine 10/28/24 10/28/24 Sal Cooper 10/28/24 12/31/24 documented as of this encounter
--- OUTSIDE RECORDS SUMMARY | 2025-05-14 12:03 | XMS_ITS | Encounter Summary ---
Author Organization [employer] Address [address] [facility] 7t [place] [address] Care Team Providers Care Head Correction Officer Name Role Phone Sterling Rose MD Primary Care Prov ider Reese Hatch Unavailable Unavailable Pam Neal RN Unavailable Unavailable Sal Cooper Unavailable Reason for Visit * Reason Onset Date Comments Med Refill 08/09/2023 Encounter Details Date Type Department Care Team (Late st Contact Info) Description 08/09/2023 Telephone [facility] MEDICINE [address] [place] [address] Sterling Rose MD [address] [place] [address] Med Refill Social History Tobacco Use Types [...] Telephone Encounter - Johnson Mayer - 08/09/2023 9:30 AM EDT TC from pt requesting medication refill. Medications needing refill : levothyroxine (Tirosint) 125 MCG capsule To be sent to: [facility]/pharmacy #[id number] - [address] AT [address] documented in this encounter Plan of Treatment Not on file documented as of this encounter Visit Diagnoses Not on filedocumented in this encounter Additional Health Concerns Assessment Noted Time PHQ-9 Depression Total Score: 10 024 2:15 PM EST documented as of this encounter Care Teams Head Correction Officer Relationship Specialty Start Date End Date Sterling Rose MD [address] [place] [address] PCP - General Internal Medicine 09/30/19 Reese Hatch FNP [address] [place] [address] Nurse Practitioner Family Medicine 04/10/23 Pam Neal RN [address] [place] [address] Registered Nurse Family Medicine 10/28/24 10/28/24 Sal Cooper 10/28/24 12/31/24 documented as of this encounter
--- OUTSIDE RECORDS SUMMARY | 2025-05-14 12:03 | XMS_ITS | Encounter Summary ---
Author Organization [employer] Address [address] [place] [address] Care Team Providers Care Lead Presser Name Role Phone Sterling Rose MD Primary Care Prov ider Reese Hatch Unavailable Unavailable Pam Neal RN Unavailable Unavailable Sal Cooper Unavailable Reason for Visit * Reason Onset Date Comments Medication Question 09/28/2022 Encounter Details Date Type Department Care Team (Late st Contact Info) Description 09/28/2022 Telephone [facility] [address] [place] [address] Sterling Rose MD [address] [place] [address] Medication Question Social History Tobacco Use Types Packs/Day Years [...] encounter Miscellaneous Notes * Telephone Encounter - Germán Alan - 09/28/2022 2:24 PM EDT Tc from pt requesting status on medication and also stated pharmacy is requesting for PCP to sign off on medication to have the okay cone picker. Please contact pt at [phone] * Telephone Encounter - April Sandoval Arevalo - 09/28/2022 1:19 PM EDT Tc from pt requesting status on message previously sent. Inpatient Care Manager Rn spoke with pharmacy and pharmacy informed they would not give to pt until is okay to due to having tramadol refill on 09/26/2022 Please contact Pharmacy at [phone] * Telephone Encounter - Germán Alan - 09/28/2022 11:57 AM EDT Tc from lasha with [facility] pharmacy requesting a call back regarding medication morphine (MSIR) 15 MG tablet Please contact lasha at [phone] documented in this encounter Plan of Treatment Not on file documented as of this encounter Visit Diagnoses Not on filedocumented in this encounter Additional Health Concerns Assessment Noted Time PHQ-9 Depression Total Score: 2 08/09/19 23 2:24 PM EDT documented as of this encounter Care Teams Lead Presser Relationship Specialty Start Date End Date Stevenson Sterling Hernandez MD [address] [place] [address] PCP - General Internal Medicine 09/30/19 Reese Hatch FNP [address] [place] [address] Nurse Practitioner Family Medicine 04/10/23 Pam Neal, GABBY [address] [place] [address] Registered Nurse Family Medicine 10/28/24 10/28/24 Sal Cooper 10/28/24 12/31/24 documented as of this encounter
--- OUTSIDE RECORDS SUMMARY | 2025-05-14 12:03 | XMS_ITS | Encounter Summary ---
Author Organization [email or web address] Address [address], [place] [address] Care Team Providers Care Chemical Research Engineer Name Role Phone Sterling Rose MD Primary Care Prov ider Reese Hatch Unavailable Unavailable Pam Neal RN Unavailable Unavailable Sal Cooper Unavailable Reason for Visit * Reason Comments Med Refill Encounter Details Date Type Department Care Team ([facility] st Contact Info) Description 07/11/2022 Refill [facility] [address] [place] [address] Sterling Rose MD [address] [place] [address] Mild intermittent asthma without complication Social History Tobacco Use Types Packs/Day Years [...] as of this encounter Visit Diagnoses Diagnosis Mild intermittent asthma without complication documented in this encounter Additional Health Concerns Assessment Noted Time PHQ-9 Depression Total Score: 9 06/07/19 23 11:24 AM EST documented as of this encounter Care Teams Chemical Research Engineer Relationship Specialty Start Date End Date Sterling Rose MD [address] [place] [address] PCP - General Internal Medicine 09/30/19 Reese Hatch FNP [address] [place] [address] Nurse Practitioner Family Medicine 04/10/23 Pam Neal RN [address] [place] [address] Registered Nurse Family Medicine 10/28/24 10/28/24 Sal Cooper 10/28/24 12/31/24 documented as of this encounter
--- OUTSIDE RECORDS SUMMARY | 2025-05-14 12:03 | XMS_ITS | Clinical Summary ---
Author Organization [employer] Address [address] [facility] [address] [place] [address] Care Team Providers Care Termite Exterminator Helper Name Role Phone Sterling Rose MD Primary Care Prov ider Reese Hatch Unavailable Unavailable Allergies Active Allergy Reactions Criticality Noted Date Comments Diazepam Unknown 10/19/2016 Medications * This document contains information received from the source organization and may not represent a complete record from that organization. cyclobenzaprine (Flexeril) 10 MG tablet take 1 tablet by oral route 3 times every day 02/18/20 22 Active Oxymetazoline HCl 1 % creamIndication s:Rosacea To use once a day 30 g 11 09/14/19 23 Active Misc. Devices (Pulse Oximeter For Finger) misc To use every 4 hours. Call the office if O2Sat is <90% 1 each 03/02/20 23 Active ketoconazole (NIZOral) 2 % shampooIndicati ons:Seborrheic dermatitis APPLY TOPICALLY 2 TIMES A WEEK 120 mL 11 10/04/19 24 Active Fluocinolone Acetonide Scalp 0.01 % oilIndications: Seborrheic dermatitis TO APPLY TO THE SCALP 2 TIMES A WEEK. 118.28 mL 3 01/09/20 24 Active omeprazole (PriLOSEC) [address] capsule Take 1 capsule (20 mg) by mouth Once per day. 90 capsule 3 01/05/20 24 Active meloxicam (Mobic) 15 MG tablet TAKE 1 TABLET BY MOUTH EVERY DAY IN THE MORNING 30 tablet 1 03/05/20 24 Active ammonium lactate (Amlactin) 12 % cream USE TOPICALLY 4 TIMES A DAY NEEDED DRY SKIN 280 g 1 10/16/19 25 Active triamcinolone (Kenalog) 0.025 % creamIndication s:Seborrheic dermatitis APPLY TO AFFECTED AREA TWICE A DAY 80 g 11 10/16/19 25 Active imipramine (Tofranil) 10 MG tablet Take 1 tablet (10 mg) by mouth at bedtime. 30 tablet 11 11/13/19 25 026 Active IBU 800 MG tablet TAKE ONE TABLET THREE TIMES DAILY 90 tablet 2 5 8:52 AM EST 03/07/20 25 Active albuterol (Ventolin HFA) 108 (90 Base) MCG/ACT inhalerIndicati ons:Mild intermittent asthma without complication INHALE TWO PUFFS BY MOUTH EVERY 4 TO 6 HOURS NEEDED 18 g 1 5 8:52 AM EST 03/26/20 25 Active valACYclovir (Valtrex) 500 MG tablet Take 500 mg by mouth. 09/06/19 13 Active traZODone (Desyrel) 150 MG tabletIndicatio ns:ADAM (generalized anxiety disorder) TAKE 1 TABLET BY MOUTH EVERYDAY AT BEDTIME 90 tablet 1 5 2:56 PM EST 05/06/20 25 Active clonazePAM (KlonoPIN) 1 MG tabletIndicatio ns:ADAM (generalized anxiety disorder) Take 1 tablet (1 mg) by mouth 2 times daily. 60 tablet 05/13/20 25 Active FLUoxetine (PROzac) 40 MG capsuleIndicati ons:ADAM (generalized anxiety disorder) Take 1 capsule (40 mg) by mouth Once per day. 90 capsule 3 05/13/20 25 Active dicyclomine (Bentyl) 20 MG tabletIndicatio ns:Irritable bowel syndrome with both constipation and diarrhea TAKE ONE TABLET THREE TIMES DAILY 30 tablet 3 05/13/20 25 Active levothyroxine (Synthroid, Levoxyl) 125 MCG tablet Take 1 tablet (125 mcg) by mouth Once per day. 90 tablet 1 05/13/20 25 Active FLUoxetine (PROzac) 20 MG capsuleIndicati ons:ADAM (generalized anxiety disorder) TAKE 1 CAPSULE BY MOUTH EVERY DAY 90 capsule 1 01/09/20 24 025 Discontinued traZODone (Desyrel) 150 MG tabletIndicatio ns:ADAM (generalized anxiety disorder) TAKE 1 TABLET BY MOUTH EVERYDAY AT BEDTIME 90 tablet 1 09/12/19 25 025 Discontinued dicyclomine (Bentyl) 20 MG tabletIndicatio ns:Irritable bowel syndrome with both constipation and diarrhea TAKE ONE TABLET THREE TIMES DAILY 30 tablet 3 09/19/19 25 025 Discontinued(Re order (will not trigger notification to Pharmacy)) FLUoxetine (PROzac) 40 MG capsuleIndicati ons:ADAM (generalized anxiety disorder) Take 1 capsule (40 mg) by mouth Once per day. 90 capsule 3 01/07/20 25 025 Discontinued(Re order (will not trigger notification to Pharmacy)) levothyroxine (Synthroid, Levoxyl) 125 MCG tablet TAKE ONE TABLET BY MOUTH ONCE DAILY 90 tablet 1 02/07/20 25 025 Discontinued(Re order (will not trigger notification to Pharmacy)) clonazePAM (KlonoPIN) 1 MG tabletIndicatio ns:ADAM (generalized anxiety disorder) Take 1 tablet (1 mg) by mouth 2 times daily. Do not start before April 11, 2025. 60 tablet 5 4:02 PM EST 04/11/20 25 025 Discontinued valACYclovir (Valtrex) 1 g tablet Take 2 tablets (2,000 mg) by mouth 2 times daily for 7 days. 14 tablet 04/25/20 25 025 Discontinued(Re order (will not trigger notification to Pharmacy)) valACYclovir (Valtrex) 1 g tablet Take 2 tablets (2,000 mg) by mouth 2 times daily for 7 days. 14 tablet 04/25/20 25 025 clonazePAM (KlonoPIN) 1 MG tabletIndicatio ns:ADAM (generalized anxiety disorder) Take 1 tablet (1 mg) by mouth 2 times daily. 60 tablet 05/13/20 25 025 Discontinued(Re order (will not trigger notification to Pharmacy)) Active Problems Problem Noted Date Diagnosed Date Chronic midline low back pain without sciatica 0 11/12/2024 Assessment & Plan (02/11/2025 5:34 PM EDT): Has not established care with pain management, avoid heavy lifting, take tylenol/apply ice/ as needed, call back if not improving Mild intermittent asthma without complication Irritable bowel syndrome with diarrhea Assessment & Plan (03/17/2025 4:24 PM EDT): History of IBS with diarrhea will send diapers and gloves to be used when leaving her home, told to follow up GI Assessment & Plan (11/12/2024 2:54 PM EDT): Will renew imipramine, told to follow up with GI, keep food diary, denied fever/chills, abdominal pain, er precautions reviewed Assessment & Plan (12/06/2023 2:59 PM EDT): No fever/chills, no bleeding, reviewed diet recommendations, will send bentyl, follow up with GI, reviewed er precautions Food insecurity 08/07/2023 Assessment & Plan (08/07/2023 12:13 PM EDT): During IBH Consult Jerri presenting with excessive worry/anxiety, difficulty controlling worry, restless/keyed up/On edge, easily fatigued, difficulty concentrating/Mind going blank , irritability, muscle tension, and sleep disturbance difficulty falling asleep; for a period of 18+ mo, for all symptoms in the context of financial concern, illness or family illness, and housing. Jerri endorsed anxiety symptoms. She reported feeling overwhelmed due to having different stressors. Food insecurity is one of them. Jerri sees Reese Shetty for medication management. Currently on a wait list for OP individual therapy with [facility]. PLAN: (check all that apply) Continue with current services (defined as services in the past 12 months) Behavioral Health Integration Plan Patient Self Plan Patient to utilize skills provided in intervention , Patient to reach out to [facility] team as needed, Comply with medication , Patient to engage in OP therapy , and Patient to reach out to [facility] as needed. Patient reported she received a call from [facility] in regards of referral placed on 07/07/23. Agency completed the intake with patient, she said she hasn't heard back since then. Referral for CM/SDOH sent on 08/07/23 to request assistance with food insecurities and transportation. [facility] 05/25/2023 Assessment & Plan (05/25/2023 2:16 PM EST): Patient wants to be referred to external dermatology for evaluation, will place consult Acute non-recurrent maxillary sinusitis 05/25/19 Pre-op examination 03/27/2023 Assessment & Plan (03/27/2023 3:39 PM EST): -patient is not cleared for cataract surgery -cardiac pain and SOB is most likely due to anxiety/panic attacks. Referral to cardiology placed. -patient has had multiple surgeries and denies adverse effect to anesthesia Acute right flank pain 03/27/2023 Assessment & Plan (03/27/2023 3:33 PM EST): -likely musculoskeletal in nature -POCT urine dipstick negative -apply heat and stretch three times daily -topical application of biofreeze, OTC icy hot -call the clinic with no improvement or worsening pain Screening for colon cancer 02/02/2023 Assessment & Plan (02/02/2023 6:13 PM EDT): Will refer for screening colonoscopy Encounter for screening mamm ogram for malignant neoplasm of breast 02/02/2023 Assessment & Plan (02/02/2023 6:15 PM EDT): Will order a mammogram Hx of papillary thyroid carcinoma 01/12/2023 Assessment & Plan (02/02/2023 6:13 PM EDT): Patient with hx of thyroid surgery for papillary thyroid cancer, she want to be followed at [facility], 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 [employer], will place Referral, new labs ordered, she is on levothyroxine 112mcg Assessment & Plan (01/12/2023 9:41 PM EDT): Patient with hx of papillary thyroid cancer, lost endocrinology follow up, will place new referral Seborrheic keratoses 09/07/2022 Assessment & Plan (09/07/2022 6:34 PM EDT): Patient explained skin ondition is benign, but she wants to see a vending route driver, as she refers she has family hx of skin cancer, will place referal Nonalcoholic steatohepatitis 08/30/2022 Assessment & Plan (08/30/2022 4:00 PM EDT): Will refer to GI for evaluation, diet as well as exercise and weight loss recommendations were given. Liver cyst 08/30/2022 Assessment & Plan (08/30/2022 4:01 PM EDT): Patient found incidentally with 2 liver cyst will refer to GI for evaluation Hospital discharge follow-up 08/30/2022 ADAM (generalized anxiety disorder) 06/07/2022 Assessment & Plan (11/30/2023 3:08 PM EDT): Anxiety is not controlled, with OCD features, racing thoughts, interrupted sleep. Many health concerns including abdominal pain for which she went to the ED yesterday but left without being seen. I have requested triage nurse call patient to assess. She has recently started increased Fluoxetine 40 mg daily., and thinks it may be starting to make an improvement. No changes at this time. Will also continue Clonazepam 1 mg BID (not prn), Trazodone 150 mg at bedtime. Has been referred for counseling. Since this provider will be retiring, patient will be referred to new [facility] psychiatric provider. Pt is aware that appts will be via televisit and that provider will not be an employee of [facility]. She gives permission to share PHI. Any issues or concerns, contact the health center. All her questions were answered and I have wished her well. She agrees with the plan Assessment & Plan (10/19/2023 4:52 PM EDT): Still dealing with many stressors including health concerns for herself and family members' problems. Will increase now to Fluoxetine 40 mg daily. Continue Clonazepam 1 mg BID (not prn), Trazodone 150 mg at bedtime. Referring again for counseling. This provider will be retiring soon, but we will have one final appointment before her care is transferred to new [facility] psychiatric prescriber. She agrees with the plan Assessment & Plan (08/15/2023 12:51 PM EDT): Still dealing with many stressors including health concerns for herself and family members. No med changes: Continue Clonazepam 1 mg BID (not prn), Fluoxetine 20 mg daily, Trazodone 150 mg at bedtime. Has been referred for counseling and will be given the phone number to call. Will also send her information about acupuncture clinic. On 04/10/2023 informed pt that this provider would be retiring, but we would make every effort to ensure smooth transition of care. Meanwhile, F/U with me in 2 months. She agrees with the plan Assessment & Plan (08/07/2023 12:13 PM EDT): During IBH Consult Jerri presenting with excessive worry/anxiety, difficulty controlling worry, restless/keyed up/On edge, easily fatigued, difficulty concentrating/Mind going blank , irritability, muscle tension, and sleep disturbance difficulty falling asleep; for a period of 18+ mo, for all symptoms in the context of financial concern, illness or family illness, and housing. Jerri endorsed anxiety symptoms. She reported feeling overwhelmed due to having different stressors. Food insecurity is one of them. Jerri sees Reese Shetty for medication management. Currently on a wait list for OP individual therapy with [facility]. PLAN: (check all that apply) Continue with current services (defined as services in the past 12 months) Behavioral Health Integration Plan Patient Self Plan Patient to utilize skills provided in intervention , Patient to reach out to [facility] team as needed, Comply with medication , Patient to engage in OP therapy , and Patient to reach out to [facility] as needed. Patient reported she received a call from [facility] in regards of referral placed on 07/07/23. Agency completed the intake with patient, she said she hasn't heard back since then. Referral for CM/SDOH sent on 08/07/23 to request assistance with food insecurities and transportation. Assessment & Plan (06/26/2023 2:47 PM EST): Still dealing with many stressors including health concerns and also multiple recent deaths and serious illnesses of family and friends. No med changes: Continue Clonazepam 1 mg BID (not prn), Fluoxetine 20 mg daily, Trazodone 150 mg at bedtime. Will refer again for counseling. Also suggest she try [facility] acupuncture clinic. On 04/10/2023 informed pt that this provider would be retiring, but we would make every effort to ensure smooth transition of care. Meanwhile, F/U with me in 6 weeks. She agrees with the plan Assessment & Plan (05/09/2023 10:47 AM EST): Still dealing with many stressors, especially r/t her health, but coping better. Will continue Clonazepam 1 mg BID (not prn), Fluoxetine 20 mg daily, Trazodone 150 mg at bedtime. Will refer again for counseling. On 04/10/2023 informed pt that this provider would be retiring within the next year or so, but we would make every effort to ensure smooth transition of care. Meanwhile, F/U with me in 6 weeks. She agrees with the plan Assessment & Plan (04/10/2023 12:11 PM EST): Not doing well, has had episodes of chest pain (r/o'd cardiac). Will adjust meds. Stop Clonazepam 2 mg at bedtime. Start Clonazepam 1 mg BID (not prn). Increase to Fluoxetine 20 mg daily. Conitnue Trazodone 150 mg at bedtime. F/U for counseling when availabl. Today 04/10/2023 informed pt that this provider would be retiring within the next year or so, but we would make every effort to ensure smooth transition of care. Meanwhile, F/U with me in 1 month. She agrees with the plan Assessment & Plan (02/06/2023 2:49 PM EDT): Multiple social stressors, still doing OK with medication. Continue Fluoxetine 10 mg daily, Trazodone 150 mg at bedtime, Clonazepam 2 mg once daily prn, #30 per month. F/U for counseling when available and F/U with me in 2 months. She agrees with the plan Assessment & Plan (12/05/2022 2:42 PM EDT): Multiple social stressors, still doing OK with medication. Will be given the info for the [facility] in [place]. Continue Fluoxetine 10 mg daily, Trazodone 150 mg at bedtime, Clonazepam 2 mg once daily prn, #30 per month. F/U with me in 2 months. She agrees with the plan Assessment & Plan (10/11/2022 10:47 AM EDT): She is not doing well, multiple social stressors and medical concerns. She understands that she cannot take both Clonazepam and opiate pain meds and is certain she wants no opiates at all. [facility] contact [facility] for counseling. Also transferring to [facility] pharmacy for home delivery. We are referring to [facility] for assistance with transportation. Continue current medications: Fluoxetine 10 mg daily, Trazodone 150 mg at bedtime, Clonazepam 2 mg once daily prn, #30 per month. F/U with me in 2 months. She agrees with the plan Assessment & Plan (08/08/2022 3:12 PM EDT): She is again doing well. Continue current medications: Fluoxetine 10 mg daily, Trazodone 150 mg at bedtime, Clonazepam 2 mg once daily prn, #30 per month. F/U with me in 2 months. She agrees with the plan Assessment & Plan (06/07/2022 12:52 PM EST): Pt's anxiety has increased. She will now resume the Fluoxetine 10 mg daily. Continue other medications. Await transfer to new therapist. Encouraged to F/U with Di[facility]. Continue Trazodone 150 mg at bedtime, Clonazepam 2 mg once daily prn, #30 per month. F/U with me in 2 months. She agrees with the plan Encounters Date Type Department Care Team Description 05/13/2025 Travel 05/12/2025 Refill [facility] [address] [place] [address] Sterling Rose MD ADAM (generalized anxiety disorder) 05/06/2025 Refill [facility] MEDICINE [address] [place], [place] [phone] Sterling Rose MD ADAM (generalized anxiety disorder) 04/25/2025 Orders Only [facility] [address] [place] [address] Sterling Rose MD ADAM (generalized anxiety disorder) (Primary Dx) 04/25/2025 Refill [facility] MEDICINE [address] [place] [address] Sterling Rose MD 04/09/2025 Refill [facility] [address] [place] [address] Linda Bajwa, GABBY ADAM (generalized anxiety disorder) 04/01/2025 Telephone [facility] MED[facility]INE [address] [place] [phone] Sterling Rose MD Nurse Triage 04/01/2025 Telephone [facility] MED[facility] [address] [place] [phone] Sterling Rose MD Results 03/25/2025 Refill [facility] [address] [place] [address] Sterling Rose MD Mild intermittent asthma without complication 03/17/2025 3:15 PM EDT Telemedicine [facility] [address] [place] [address] Sterling Rose MD Irritable bowel syndrome with diarrhea (Primary Dx) 03/17/2025 Travel 03/14/2025 Telephone [facility] [address] [place] [address] Sterling Rose MD Chart Prep 03/14/2025 Orders Only [facility] [address] [place] [address] Aure Dorado MD 03/13/2025 Refill [facility] [address] [place] [address] Sterling Rose MD ADAM (generalized anxiety disorder) 03/07/2025 Refill [facility] [address] [place], [place] [phone] Sterling Rose MD 03/06/2025 Telephone [facility] MED & PEDS [address] [place] [address] Sterling Rose MD Durable Medical Equipment from Last 3 Months Immunizations Immunization Administration Dates Next Due Influenza injectable quadriv alent IIV4 with preservative 02/02/2018 Influenza, seasonal, injectable, preservative fr ee 01/16/2017 Pfizer Covid-19 Vaccine 12+ 11/24/2020 Tdap 11/13/2017 Social History Tobacco Use Types Packs/Day Years Used Date Smoking Tobacco: Former Cigarettes Tobacco Cessation:Counseling Given: Not Answered Depression Answer Date Recorded Patient Health Questionnaire-9 [...] Orientation Straight 03/21/2022 10 :31 AM EDT Last Filed Vital Signs Vital Sign Reading Time Taken Comments Blood Pressure 122/78 02/11/2025 3:57 PM EDT Pulse 68 02/11/2025 3:57 PM EDT Temperature 37.1 C (98.7 F) 02/11/2025 3:57 PM EDT Respiratory Rate 16 02/11/2025 3:57 PM EDT Oxygen Saturation 99% 09/13/2022 11:33 AM EDT Inhaled Oxygen Concentration - - Weight 67.1 kg (148 lb) 02/11/2025 3:57 PM EDT Height 157.5 cm (5' 2 ) 02/11/2025 3:57 PM EDT Body Mass Index 27.07 02/11/2025 3:57 PM EDT Plan of Treatment Health Maintenance Due Date Last Done Comments CT Colonography 1974 FIT DNA/Cologuard 1974 FIT 1974 FOBT 1974 HIV Screening 1974 Sigmoidoscopy 1974 Disability Screening 1974 Alcohol/Substance Use Screening 1986 Family Planning (PISQ) 1989 Hepatitis A Vaccines (1 of 2 - Risk 2-dose series) 1993 Hepatitis B Vaccines (1 of 3 - 19+ 3-dose series) 1993 Pneumococcal Vaccine: 50+ Years (1 of 2 - PCV) 1993 Pap Smear 10/03/1995 Cervical Cancer Screening 2004 HPV/Cotest 2004 Tobacco Screening 03/02/2024 03/02/2023 RSV Patients and Patients Aged 60 years or older (1 - Risk 50-74 years 1-dose series) 2024 Zoster Vaccines (1 of 2) 2024 COVID-19 Vaccine ( season) 2025 06/16/2022, 01/30/2021, 11/24/2020, Additional history exists Influenza Vaccine (#1) 2025 02/02/2018, 2016 SDOH Screening 10/28/2025 10/28/2024 Depression Screening 03/17/2026 03/17/2025, 03/17/20 25 Mammogram 03/29/2027 03/29/2025, 11/0 12/2024, 03/29/2025 DTaP/Tdap/Td Vaccines (2 - Td or Tdap) 11/14/2027 11/13/2017 Colonoscopy 01/03/2029 01/04/2024, 01/04/2024 Colorectal Cancer Screening 01/03/2029 Hepatitis C Screening Completed 02/02/2023 HIB Vaccines Aged Out No longer eligi ble based on patient's age to complete this topic HPV Vaccines Aged Out No longer eligi ble based on patient's age to complete this topic IPV Vaccines Aged Out No longer eligi ble based on patient's age to complete this topic Meningococcal B Vaccine Aged Out No l onger eligible based on patient's age to complete this topic Meningococcal Vaccine Aged Out No belinda natasha eligible based on patient's age to complete this topic RSV under 20 months Aged Out No longe r eligible based on patient's age to complete this topic Rotavirus Vaccines Aged Out No longer eligible based on patient's age to complete this topic Procedures Procedure Name Priority Date/Time Associated Diagnosis Comments BI MAMMOGRAM SCREENING TOMOSYNTHESIS BILATERAL Routine 03/29/2025 Encounter for screening mammogram for malignant neoplasm of breast ECG 12-LEAD Routine 03/13/2025 9:05 AM EDT HM COLONOSCOPY Routine 01/04/2024 HEPATITIS C AB W/REFL TO HCV RNA, QN, PCR Routine 02/02/2023 3:30 PM EDT Hx of papillary thyroid carcinoma from Last 3 Months or Most Recently Relevant to Health Maintenance Results * BI Mammogram Screening Tomosynthesis Bilateral (03/29/2025) Anatomical Region Laterality Modality Breast Bilateral Mammography Sterling Hernandez MD IMG BI PROCEDURES Final Result * ECG 12 lead (03/13/2025 9:05 AM EDT) Aure Provider ECG ORDERABLES Final Res ult * Colonoscopy (01/04/2024) Colonoscopy Normal Normal Narrative Marquita Gutierrez - 01/04/2024 Colonoscopy order added Historical Provider HEALTH MAINTENANCE Final Result * Hepatitis C Antibody with Reflex to HCV, RNA, Quantitative, Real-Time PCR (02/02/2023 3:30 PM EDT) Hepatitis C Antibody Nonreactive Nonreactive [facility] Comment:Antibodies to HCV no t detected; does not exclude early acuteHCV infection. Blood Venous blood specimen / Unknown 02/02/2023 3:30 PM EDT 02/02/2023 5:51 PM EDT Sterling Hernandez MD LAB BLOOD ORDERABL ES Final Result [facility] [address] [place] [phone] from Last 3 Months or Most Recently Relevant to Health Maintenance Insurance [facility] Care Teams Termite Exterminator Helper Relationship Specialty Start Date End Date StevensonSterling Rodriguez MD [address] [place] [address] PCP - General Internal Medicine 09/30/19 Reese Hatch FNP [address] [place] [address] Nurse Practitioner Family Medicine 04/10/23
--- OUTSIDE RECORDS SUMMARY | 2025-05-14 12:04 | XMS_ITS | Encounter Summary ---
Author Organization [employer] Address [address] [facility] [address] [place] [address] Care Team Providers Care Thrill Performer Name Role Phone Sterling Rose MD Primary Care Prov ider Reese Htach ECCLESIASTICAL WORKER Unavailable Unavailable Sal Cooper Unavailable Encounter Details Date Type Department Care Team (Late st Contact Info) Description 11/12/2024 Telephone [facility] MEDICINE [address] [place] [address] Sterling Rose MD [address] [place] [address] Social History Tobacco Use Types Packs/Day Years [...] Recorded Patient Health Questionnaire-2 Score 1 11/30/2023 Internet Access Answer Date Recorded Internet Access [...] documented as of this encounter Care Teams Thrill Performer Relationship Specialty Start Date End Date Sterling Rose MD [address] [place] [address] PCP - General Internal Medicine 09/30/19 Reese Hatch FNP [address] [place] [address] Nurse Practitioner Family Medicine 04/10/23 Sal Cooper 10/28/24 12/31/24 documented as of this encounter
--- OUTSIDE RECORDS SUMMARY | 2025-05-14 12:04 | XMS_ITS | Encounter Summary ---
Author Organization [employer] Address [address] [facility] [address] [place] [address] Care Team Providers Care Net Making Supervisor Name Role Phone Sterling Rose MD Primary Care Prov ider Reese Hatch Unavailable Unavailable Pam Neal RN Unavailable Unavailable Sal Cooper Unavailable Reason for Visit * Reason Comments Med Refill Encounter Details Date Type Department Care Team ([facility] st Contact Info) Description 03/06/2023 Refill [facility] MEDICINE [address] [place] [address] Reese Hatch FNP ADAM (generalized anxiety disorder) Social History Tobacco Use Types Packs/Day Years Used Date Smoking Tobacco: Former Cigarettes Depression Answer Date Recorded Patient Health Questionnaire-9 Score 15 02/06/2023 Housing Stability Answer Date Recorded What is [...] Answer Date Recorded Patient Health Questionnaire-2 Score 5 02/06/2023 Comments Unknown Sex and Gender Information Value [...] Assessment Noted Time PHQ-9 Depression Total Score: 15 023 2:01 PM EDT documented as of this encounter Care Teams Net Making Supervisor Relationship Specialty Start Date End Date Sterling Rose MD [address] [place] [address] PCP - General Internal Medicine 09/30/19 Reese Hatch FNP [address] [place] [address] Nurse Practitioner Family Medicine 04/10/23 Pam Neal RN [address] [place] [address] Registered Nurse Family Medicine 10/28/24 10/28/24 Sal Cooper 10/28/24 12/31/24 documented as of this encounter
--- OUTSIDE RECORDS SUMMARY | 2025-05-14 12:04 | XMS_ITS | Encounter Summary ---
Author Organization [employer] Address [address] [facility] [address] [place] [address] Care Team Providers Care Senior Php Web Developer Name Role Phone Sterling Rose MD Primary Care Prov ider Reese Hatch Unavailable Unavailable Pam Neal RN Unavailable Unavailable Sal Cooper Unavailable Reason for Visit * Reason Onset Date Comments Med Refill 04/24/2023 Encounter Details Date Type Department Care Team ([facility] st Contact Info) Description 04/24/2023 Telephone [facility] MED & PEDS [address] [place], [place] [phone] Sterling Rose MD [address] [place], [place] [phone] Med Refill Social History Tobacco Use Types [...] encounter Miscellaneous Notes * Telephone Encounter - Danielle Mcpherson LPN - 04/24/2023 1:07 PM EST Medication was sent to [id number] on 02/15/23 #30 with 2 refills to [facility] for refill. * Telephone Encounter - Yury Fournier - 04/24/2023 12:13 PM EST Tc from pt requesting medication refill levothyroxine (Tirosint) 125 MCG capsule. documented in this encounter Plan of Treatment Not on file documented as of this encounter Visit Diagnoses Not on filedocumented in this encounter Additional Health Concerns Assessment Noted Time PHQ-9 Depression Total Score: 18 023 11:00 AM EST documented as of this encounter Care Teams Senior Php Web Developer Relationship Specialty Start Date End Date Sterling Rose MD [address] [place] [address] PCP - General Internal Medicine 09/30/19 Reese Hatch FNP [address] [place] [address] Nurse Practitioner Family Medicine 04/10/23 Pam Neal, RN [address] [place] [id number] Registered Nurse Family Medicine 10/28/24 10/28/24 Sal Cooper 10/28/24 12/31/24 documented as of this encounter
--- OUTSIDE RECORDS SUMMARY | 2025-05-14 12:04 | XMS_ITS | Encounter Summary ---
Author Organization [employer] Address [address] [facility] [address] [place] [address] Care Team Providers Care Outreach Librarian Name Role Phone Sterling Rose MD Primary Care Prov ider Reese Hatch Unavailable Unavailable Encounter Details Date Type Department Care Team (Late st Contact Info) Description 03/14/2025 Orders Only [facility] MED & PEDS [address] [place] [address] Provider, MD Aure Social History Tobacco Use Types Packs/Day Years [...] on file documented as of this encounter Procedures Procedure Name Priority Date/Time Associated Diagnosis Comments ECG 12-LEAD Routine 03/13/2025 9:05 AM EDT documented in this encounter Results * ECG 12 lead (03/13/2025 9:05 AM EDT) us Historical Provider ECG ORDERABLES Final Res ult documented in this encounter Visit Diagnoses Not on filedocumented in this encounter Additional Health Concerns Assessment Noted Time PHQ-9 Depression Total Score: 7 11/30/19 24 2:02 PM EDT documented as of this encounter Care Teams Outreach Librarian Relationship Specialty Start Date End Date StevensonSterling Rodriguez MD [address] [place] [address] PCP - General Internal Medicine 09/30/19 Reese Hatch FNP [address] [place] [address] Nurse Practitioner Family Medicine 04/10/23 documented as of this encounter
--- OUTSIDE RECORDS SUMMARY | 2025-05-14 12:04 | XMS_ITS | Encounter Summary ---
Author Organization [employer] Address [address] [facility] [address] [place] [address] Care Team Providers Care Folding Rules Printing Machine Operator Name Role Phone Sterling Rose MD Primary Care Prov ider Reees Hatch Unavailable Unavailable Pam Neal RN Unavailable Unavailable Sal Cooper Unavailable Reason for Visit * Reason Comments Med Refill Encounter Details Date Type Department Care Team ([facility] Contact Info) Description 03/12/2023 Refill [facility] MED & PEDS [address] [place] [address] Vane Cheung MD [address] [place] [address] Seborrheic dermatitis Social History Tobacco Use Types Packs/Day Years [...] as of this encounter Visit Diagnoses Diagnosis Seborrheic dermatitis Unspecified seborrheic dermatitis documented in this encounter Additional Health Concerns Assessment Noted Time PHQ-9 Depression Total Score: 15 023 2:01 PM EDT documented as of this encounter Care Teams Folding Rules Printing Machine Operator Relationship Specialty Start Date End Date Sterling Rose MD [address] [place] [address] PCP - General Internal Medicine 09/30/19 Reese Hatch FNP [address] [place] [address] Nurse Practitioner Family Medicine 04/10/23 Pam Neal RN [address] [place] [address] Registered Nurse Family Medicine 10/28/24 10/28/24 Sal Cooper 10/28/24 12/31/24 documented as of this encounter
--- OUTSIDE RECORDS SUMMARY | 2025-05-14 12:04 | XMS_ITS | Encounter Summary ---
Author Organization [employer] Address [address] [facility] [address] [place] [address] Care Team Providers Care Warm In Worker Name Role Phone Sterling Rose MD Primary Care Prov ider Reese Hatch PROCESS STRIPPER Unavailable Unavailable Sal Cooper Unavailable Reason for Visit * Reason Comments Med Refill Encounter Details Date Type Department Care Team ([facility] st Contact Info) Description 11/20/2024 Refill [facility] MED & PEDS [address] [place], [place] [phone] Sterling Rose MD [address] [place], [place] [phone] Mild intermittent asthma without complication Social History [...] documented as of this encounter Care Teams Warm In Worker Relationship Specialty Start Date End Date Sterling Rose MD [address] [place] [address] PCP - General Internal Medicine 09/30/19 Reese Htach FNP [address] [place] [address] Nurse Practitioner Family Medicine 04/10/23 Sal Cooper 10/28/24 12/31/24 documented as of this encounter
== END 2025-05-14 11:59 | disposition home or self-care (01) ==
LOC: HO.CHCLDS 11:58
PROVIDERS: Visit Provider Internal Medicine
DX: Z85.850 Personal history of malignant neoplasm of thyroid (principal)
CPT/HCPCS: 36415; 84443